=== PATIENT | female | born 1935 | race Caucasian/White ===

== ENCOUNTER 2018-11-18 18:52 | Inpatient (IN) | payer MEDICARE, OTHER ==
[~2018-11-18] VITALS: Ht 165.1 cm; Wt 55.1 kg
--- NOTE | 2018-11-18 19:47 | EKG ---
[address] [address] Test Date: 2018-11-18 Test Time: 19:45:01 Pat Name: JOSSY CONNELLY Department: Room: Gender: F Psychological Operations Officer: : 1935 Requested By: JOAN COSTELLO Order Number: [id number] Reading MD: Alvin Demarco Measurements Intervals [place] Rate: 82 P: 65 [place]: 162 QRS: 39 QRSD: 68 T: 66 QT: 346 QTc: 407 Interpretive Statements SINUS RHYTHM Electronically Signed On 11-26-2018 10:51:08 CLIENT SERVER DEVELOPER by Alvin Demarco
[2018-11-18 19:50] LABS: BASO % 0 % (0-3); EOS # 0.2 x10^3/uL (0.0-0.7); EOS % 3 % (0-3); HEMATOCRIT 40.1 % (36.0-47.0); HEMOGLOBIN 13.1 g/dL (12.0-15.5); LYMPH # 1.1 x10^3/uL (1.0-4.8); LYMPH % 16 % (24-48); MEAN CORPUSCULAR HEMOGLOBIN 28 pg (25-35); MEAN CORPUSCULAR HGB CONC 33 g/dL (31-37); MEAN CORPUSCULAR VOLUME 84 fL (79-100); MONO # 0.6 x10^3/uL (0.0-1.1); MONO % 9 % (0-9); NEUT % 73 % (31-73); PLATELET COUNT 178 x10^3/uL (140-400); RED BLOOD COUNT 4.78 x10^6/uL (3.50-5.40); RED CELL DISTRIBUTION WIDTH 15.8 % (11.5-14.5); WHITE BLOOD COUNT 6.9 x10^3/uL (4.0-11.0)
[2018-11-18 19:57] LABS: AMPHETAMINE/METHAMPHETAMINE NEG (NEG); BARBITURATES NEG (NEG); BENZODIAZEPINES NEG (NEG); CANNABINOIDS NEG (NEG); COCAINE NEG (NEG); METHADONE NEG (NEG); OPIATES NEG (NEG); PHENCYCLIDINE NEG (NEG)
[2018-11-18 20:02] LABS: BILIRUBIN,URINE NEG (NEG); CLARITY,URINE CLOUDY; COLOR,URINE YELLOW; GLUCOSE,URINE NEG (NEG); NITRITE,URINE NEG (NEG); UROBILINOGEN,URINE 2 mg/dL (0.2 mg/dL)
[2018-11-18 20:03] LABS: AMORPHOUS SEDIMENT,UR PRESENT /HPF; BACTERIA,URINE MANY /HPF (0-FEW); HYALINE CASTS, URINE OCC /HPF; SQUAMOUS EPITHELIAL CELL,UR OCC /LPF
[2018-11-18 20:04] LABS: ALBUMIN 2.7 g/dL (3.4-5.0); CALCIUM 9.1 mg/dL (8.5-10.1); CREATININE 0.9 mg/dL (0.6-1.0); DIRECT BILIRUBIN 0.2 mg/dL (0.0-0.2); GFR 59.8; POTASSIUM 3.1 mmol/L (3.5-5.1); TOTAL BILIRUBIN 0.5 mg/dL (0.2-1.0); TOTAL PROTEIN 6.7 g/dL (6.4-8.2)
[2018-11-18] MEDS ORDERED: POTASSIUM CHLORIDE 20 MEQ TABLET.ER. PO ONE (20:30)
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
[2018-11-18] MEDS ORDERED: POLY17PO5 PO ×2 (20:44)
[2018-11-18] MEDS ORDERED: POTA20TA82 PO (20:44)
[2018-11-18] MEDS ORDERED: SPIR25TA PO (20:44)
[2018-11-18] MEDS ORDERED: MEMA28CA PO (20:44)
[2018-11-18] MEDS ORDERED: HYDR-2145 PO (20:44)
[2018-11-18] MEDS ORDERED: FLUT16SP21 NS (20:44)
[2018-11-18] MEDS ORDERED: LOPE2TAB27 PO (20:44)
[2018-11-18] MEDS ORDERED: DOCU-109 PO (20:44)
[2018-11-18] MEDS ORDERED: OMEP20TA8 PO (20:44)
[2018-11-18] MEDS ORDERED: DIVA125C2 PO (20:44)
[2018-11-18] MEDS ORDERED: PANT40TA5 PO (20:44)
[2018-11-18] MEDS ORDERED: TAMS0.4C2 PO (20:44)
[2018-11-18] MEDS ORDERED: ONDA4TAB11 PO (20:44)
[2018-11-18] MEDS ORDERED: SERT25TA PO (20:44)
[2018-11-18] MEDS ORDERED: DONE10TA7 PO (20:44)
[2018-11-18] MEDS ORDERED: ATOR10TA60 PO (20:44)
[2018-11-18] MEDS ORDERED: VENL150C6 PO (20:44)
[2018-11-18] MEDS ORDERED: ACET325T21 PO (20:44)
[2018-11-18] MEDS ORDERED: LORA2VIA IM (20:44)
[2018-11-18 21:24] VITALS: BP 108/64
[2018-11-18] MEDS ORDERED: MAGNESIUM HYDROXIDE 2,400 MG/30 ML ORAL.SUSP. PO PRN (21:30)
[2018-11-18] MEDS ORDERED: MAG HYDROX/AL HYDROX/SIMETH 30 ML ORAL.SUSP PO PRN (21:30)
[2018-11-18] MEDS ORDERED: METHYL SALICYLATE/MENTHOL TOPICAL OINTMENT 29GM TUBE. TP PRN (21:30)
[2018-11-18] MEDS ORDERED: ACETAMINOPHEN 325 MG TABLET PO PRN (21:45)
[2018-11-18] MEDS: POTASSIUM CHLORIDE 20 MEQ TABLET.ER. PO SCH (22:02)
[2018-11-18] MEDS: TAMSULOSIN 0.4 MG CAP.ER.24H. PO SCH (22:06)
[2018-11-18] MEDS: PANTOPRAZOLE 40 MG TABLET. PO SCH (22:06)
[2018-11-18] MEDS: DIVALPROEX 125 MG CAP.SPRINK PO SCH (22:06)
[2018-11-18] MEDS ORDERED: ONDANSETRON ODT 4 MG TAB.RAPDIS PO PRN (22:15)
[2018-11-18] MEDS ORDERED: POLYETHYLENE GLYCOL 3350 17 GM PACKET. PO PRN (22:15)
[2018-11-18] MEDS ORDERED: LOPERAMIDE 2 MG CAPSULE PO PRN (22:15)
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
--- NOTE | 2018-11-18 22:16 | PDOC ---
Exam Note: Yandel Note: Please also refer to the separate dictated note~for this date of service dictated separately. Discussed the patient with Nursing staff reviewed the chart.~Reviewed interim history and current functioning. Reviewed vital signs,~ Labs/ Radiology~and current medications noted below. Continue current treatment with the changes noted in the dictated addendum note Assessment: Vital Signs: Vital Signs Date Time Temp Pulse Resp B/P (MAP) Pulse Ox O2 Delivery O2 Flow Rate FiO2 11/18/18 21:24 98.0 73 16 108/64 (79) 100 11/18/18 20:53 Room Air Labs: Laboratory Tests Test 11/18/18 19:35 White Blood Count 6.9 x10^3/uL (4.0-11.0) Red Blood Count 4.78 x10^6/uL (3.50-5.40) Hemoglobin 13.1 g/dL (12.0-15.5) Hematocrit 40.1 % (36.0-47.0) Mean Corpuscular Volume 84 fL (79-100) Mean Corpuscular Hemoglobin 28 pg (25-35) Mean Corpuscular Hemoglobin Concent 33 g/dL (31-37) Red Cell Distribution Width 15.8 % (11.5-14.5) H Platelet Count 178 x10^3/uL (140-400) Neutrophils (%) (Auto) 73 % (31-73) Lymphocytes (%) (Auto) 16 % (24-48) L Monocytes (%) (Auto) 9 % (0-9) Eosinophils (%) (Auto) 3 % (0-3) Basophils (%) (Auto) 0 % (0-3) Neutrophils # (Auto) 5.0 x10^3uL (1.8-7.7) Lymphocytes # (Auto) 1.1 x10^3/uL (1.0-4.8) Monocytes # (Auto) 0.6 x10^3/uL (0.0-1.1) Eosinophils # (Auto) 0.2 x10^3/uL (0.0-0.7) Basophils # (Auto) 0.0 x10^3/uL (0.0-0.2) Urine Collection Type Unknown Urine Color Yellow Urine Clarity Cloudy Urine pH 6.0 Urine Specific [place] 1.020 Urine Protein Neg (NEG-TRACE) Urine Glucose (UA) Neg mg/dL (NEG) Urine Ketones (Stick) 15 mg/dL (NEG) Urine Blood Mod (NEG) Urine Nitrite Neg (NEG) Urine Bilirubin Neg (NEG) Urine Urobilinogen Dipstick 2 mg/dL (0.2 mg/dL) Urine Leukocyte Esterase Trace (NEG) Urine RBC 3-5 /HPF (0-2) Urine WBC 5-10 /HPF (0-4) Urine Squamous Epithelial Cells Occ /LPF Urine Transitional Epithelial Cells Occ /LPF Urine Amorphous Sediment Present /HPF Urine Bacteria Many /HPF (0-FEW) Urine Hyaline Casts Occ /HPF Urine Mucus Slight /LPF Sodium Level 141 mmol/L (136-145) Potassium Level 3.1 mmol/L (3.5-5.1) L Chloride Level 103 mmol/L (98-107) Carbon Dioxide Level 32 mmol/L (21-32) Anion Gap 6 (6-14) Blood Urea Nitrogen 21 mg/dL (7-20) H Creatinine 0.9 mg/dL (0.6-1.0) Estimated GFR (Cockcroft-Gault) 59.8 Glucose Level 107 mg/dL (70-99) H Calcium Level 9.1 mg/dL (8.5-10.1) Total Bilirubin 0.5 mg/dL (0.2-1.0) Direct Bilirubin 0.2 mg/dL (0.0-0.2) Aspartate Amino Transferase (AST) 48 U/L (15-37) H Alanine Aminotransferase (ALT) 39 U/L (14-59) Alkaline Phosphatase 129 U/L (46-116) H Total Protein 6.7 g/dL (6.4-8.2) Albumin 2.7 g/dL (3.4-5.0) L Urine Opiates Screen Neg (NEG) Urine Methadone Screen Neg (NEG) Urine Barbiturates Neg (NEG) Urine Phencyclidine Screen Neg (NEG) Urine Amphetamine/Methamphetamine Neg (NEG) Urine Benzodiazepines Screen Neg (NEG) Urine Cocaine Screen Neg (NEG) Urine Cannabinoids Screen Neg (NEG) Ethyl Alcohol Level < 10 mg/dL (0-10) Urine Ethyl Alcohol Neg (NEG) Current Medications: Meds: Current Medications Potassium Chloride (Klor-Con) 40 meq 1X ONCE PO Last administered on at 21:41; Start 11/18/18 at 20:30; Stop 11/18/18 at 20:31; Status DC Multi-Ingredient Ointment (Analgesic [place]) 1 [place] PRN QID PRN TP MUSCLE PAIN; Start 11/18/18 at 21:30 Al Hydroxide/Mg Hydroxide (Mylanta Plus Xs) 15 ml PRN AFTMEALHC PRN PO DYSPEPSIA; Start 11/18/18 at 21:30 Magnesium Hydroxide (Milk Of Magnesia) 2,400 mg PRN QHS PRN PO CONSTIPATION; Start 11/18/18 at 21:30 Divalproex Sodium (Depakote Sprinkles) 250 mg BID PO Last administered on at 22:06; Start 11/18/18 at 22:15 Donepezil HCl (Aricept) 10 mg DAILY PO ; Start 11/19/18 at 09:00 Memantine (Namenda) 10 mg BID PO ; Start 11/19/18 at 09:00 Sertraline HCl (Zoloft) 25 mg DAILY PO ; Start 11/19/18 at 09:00 Venlafaxine HCl (Effexor) 50 mg TID PO ; Start 11/19/18 at 09:00 Acetaminophen (Tylenol) 650 mg PRN Q4HRS PRN PO PAIN / TEMP; Start 11/18/18 at 21:45 Hydrochlorothiazide (Hydrodiuril) 25 mg DAILY PO ; Start 11/19/18 at 09:00 Tamsulosin HCl (Flomax) 0.4 mg HS PO Last administered on 11/18/18at 22:06; Start 11/18/18 at 22:15 Atorvastatin Calcium (Lipitor) 10 mg DAILY PO ; Start 11/19/18 at 09:00 Docusate Sodium (Colace) 100 mg DAILY PO ; Start 11/19/18 at 09:00 Fluticasone Propionate (Flonase) 2 spray DAILY NS ; Start 11/19/18 at 09:00 Loperamide HCl (Imodium) 2 mg PRN Q6HRS PRN PO DIARRHEA; Start 11/18/18 at 22: 15 Non-Formulary Medication (Omeprazole ) 20 mg DAILY PO ; Start 11/19/18 at 09:00 ; Status UNV Ondansetron HCl (Zofran Odt) 4 mg PRN Q6HRS PRN PO NAUSEA/VOMITING; Start 11/18 at 22:15 Pantoprazole Sodium (Protonix) 40 mg BID PO Last administered on 11/18/18at 22: 06; Start 11/18/18 at 22:15 Polyethylene Glycol (miraLAX) 17 gm DAILY PO ; Start 11/19/18 at 09:00 Polyethylene Glycol (miraLAX) 17 gm PRN Q12HR PRN PO CONSTIPATION; Start at 22:15 Potassium Chloride (Klor-Con) 20 meq BID PO ; Start 11/18/18 at 22:15 Spironolactone (Aldactone) 25 mg DAILY PO ; Start 11/19/18 at 09:00 Active Scripts Active Reported Ondansetron Hcl 4 Mg Tablet 4 Mg PO PRN Q6HRS PRN Zoloft (Sertraline Hcl) 25 Mg Tablet 25 Mg PO DAILY Pantoprazole Sodium 40 Mg Tablet.dr 40 Mg PO BID Potassium Chloride 20 Meq Tablet.er 20 Meq PO BID Miralax (Polyethylene Glycol 3350) 17 Gm Powd.pack 17 Gm PO PRN Q12HR PRN Miralax (Polyethylene Glycol 3350) 17 Gm Powd.pack 17 Gm PO DAILY Omeprazole 20 Mg Tablet.dr 20 Mg PO DAILY Namenda Xr (Memantine Hcl) 28 Mg Cap.spr.24 28 Mg PO DAILY Loperamide (Loperamide Hcl) 2 Mg Tablet 2 Mg PO PRN Q6HRS PRN Hydrochlorothiazide Tablet (Hydrochlorothiazide) 25 Mg Tablet 25 Mg PO DAILY Fluticasone Propionate Nasal [place] (Fluticasone Propionate) 16 Gm [place].susp 2 [place] NS DAILY Tamsulosin Hcl 0.4 Mg Cap.er.24h 0.4 Mg PO HS Venlafaxine Hcl Er (Venlafaxine Hcl) 150 Mg Cap.er.24h 150 Mg PO DAILY Donepezil Hcl 10 Mg Tablet 10 Mg PO DAILY Depakote Sprinkle (Divalproex Sodium) 125 Mg Cap.sprink 250 Mg PO BID Colace (Docusate Sodium) 100 Mg Capsule 100 Mg PO DAILY Atorvastatin Calcium 10 Mg Tablet 10 Mg PO DAILY Lorazepam 2 Mg/1 Ml Vial 0.5 Ml IM PRN Q6HRS PRN Aldactone (Spironolactone) 25 Mg Tablet 25 Mg PO DAILY Acetaminophen 325 Mg Tablet 650 Mg PO PRN Q4HRS PRN I have reviewed the current psychotropics carefully including drug interactions. Risk benefit ratio favors no change other than as noted in my dictated progress note. Diagnosis: Problems: (1) Dementia with behavioral disturbance MORIS CHAVEZ MD Nov 18, 2018 22:16
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
[2018-11-19 05:38] VITALS: BP 109/65
[2018-11-19 08:23] LABS: ALBUMIN 2.5 g/dL (3.4-5.0); ALBUMIN/GLOBULIN RATIO 0.7 (1.0-1.7); CALCIUM 9.1 mg/dL (8.5-10.1); CREATININE 0.9 mg/dL (0.6-1.0); GFR 59.8; TOTAL BILIRUBIN 0.6 mg/dL (0.2-1.0); TOTAL PROTEIN 6.2 g/dL (6.4-8.2)
[2018-11-19] MEDS: DIVALPROEX 125 MG CAP.SPRINK PO SCH ×2 (08:34→21:11)
[2018-11-19] MEDS: PANTOPRAZOLE 40 MG TABLET. PO SCH ×2 (08:34→21:12)
[2018-11-19] MEDS: DOCUSATE SODIUM 100 MG CAPSULE PO SCH (08:34)
[2018-11-19] MEDS: POTASSIUM CHLORIDE 20 MEQ TABLET.ER. PO SCH ×2 (08:34→21:12)
[2018-11-19] MEDS: DONEPEZIL HCL 10 MG TABLET PO SCH (08:35)
[2018-11-19] MEDS: hydroCHLOROthiazide 25 MG TABLET PO SCH (08:35)
[2018-11-19] MEDS: FLUTICASONE 50MCG/NASAL SPRAY 16GM BOTTLE. NS SCH (08:35)
[2018-11-19] MEDS: ATORVASTATIN CALCIUM 10 MG TABLET. PO SCH (08:35)
[2018-11-19] MEDS: MEMANTINE 10 MG TABLET. PO SCH ×2 (08:35→21:12)
[2018-11-19] MEDS: SERTRALINE 25 MG TABLET. PO SCH (08:35)
[2018-11-19] MEDS: POLYETHYLENE GLYCOL 3350 17 GM PACKET. PO SCH (08:35)
[2018-11-19] MEDS: SPIRONOLACTONE 25 MG TABLET PO SCH (08:35)
[2018-11-19] MEDS: VENLAFAXINE 50 MG TABLET. PO SCH ×2 (08:35→15:24)
[2018-11-19 08:54] LABS: VAL ACID 27 mcg/mL (50-100)
[2018-11-19] MEDS ORDERED: NON FORMULARY ITEM (Omeprazole 20 MG) PO SCH (09:00)
--- NOTE | 2018-11-19 10:51 | NUR ---
Transition Record was faxed to follow-up provider with the following elements: Reason for admission, procedures, tests, principal diagnosis, pending studies, patient instructions, 16/04 contact information for unit, phone number to obtain pending test results, plan for follow-up care, physician follow-up, advanced directive information, and medication list with dose, duration and instructions. This information was included in the following documents: History and physical, lab results, study results, progress notes, social work planning form, DC instruction form, patient visit summary, and medication reconciliation form. Date & time record faxed: 11/19/18 @1002 Record faxed to: [facility] [place]Note 2], Dr. Edna Rodrigues Record discussed with/ report given to: FIDELIA Maciel @ [facility] Addendum: 11/19/18 at 1104 by DANIEL NELSON RN Wrong Patient. Patient not discharged 11/19/18 Documented discharge on wrong patient
[2018-11-19 13:46] LABS: THYROID STIM HORMONE (TSH) 1.916 uIU/mL (0.358-3.740)
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
[2018-11-19 16:22] VITALS: BP 104/70
--- NOTE | 2018-11-19 17:24 | NUR ---
Behavior Intervention Response and Plan: BIRP Note: Behavior: Assumed Care of patient, patient located in Day Room at shift change. Patient exhibited the following behavior Calm, Withdrawn, Non Compliant. Brief assessment on rounds of vital signs, medication needs, lab studies, and pain. Treatment plan problems . Intervention: Patient assessed and the following interventions initiated safety checks 15 Minute Checks Cognitive Assessment , Head to toe Assessment , Medications. Response: After interactions and interventions patient responded in the following manner, Calm , Cooperative ,Withdrawn. Continue to assess behaviors and condition will continue to monitor throughout the shift as needed. Patient educated on ADL's, and hand hygiene. 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 Continue to assess patient for changes in above assessment. Monitor for medication needs, pain, and safety concerns. Hourly rounding performed to ensure safe environment.
--- NOTE | 2018-11-19 19:46 | HP ---
ADMIT DATE: 11/19/2018 This note covers elements not covered in my initial note on 11/19/2018. I met with the patient in the evening of 11/19/2018, previously discussed with nursing staff several times including Ml Zhao, ultrasound coordinator. IDENTIFYING DATA: The patient is an 82-year-old female referred to us from [facility] by her primary care physician and psychiatrist on account of worsening confusion, agitation, marked mood lability. She has been yelling, screaming, kicking, threatening to kill others, extremely paranoid, pushing chairs, feelings she is being held captive, aggressive to staff. Behaviors have been unmanageable at the facility as resulting in this referral. CHIEF COMPLAINT: "Why do you ask me these questions? You know all the answers. You will be the same if you were here. I have been here 3 weeks." HISTORY OF PRESENT ILLNESS: The patient has a history of dementia, Alzheimer's vascular type. She has been residing at the above facility for some time, but recently getting more paranoid, agitated with marked sleep and appetite changes, aggression, disruptive behaviors. She has been unmanageable at the facility. No clear history of bipolar disorder. PAST PSYCHIATRIC HISTORY: As above. MEDICAL HISTORY: Positive for hypertension, benign intracranial hypertension, mixed hyperlipidemia, Alzheimer's disease, diverticulitis, both small and large intestine with perforation and abscess with bleeding, status post fall on 09/03/2018. ACCU-CHEKS: None. CODE STATUS: DNR. ALLERGIES: Negative. DIET: Regular. Takes medications whole. Ambulates independently. UA on 11/18/2018 was positive. Culture is pending. CURRENT PSYCHOTROPICS: Depakote 250 b.i.d., Aricept 10 mg daily, Effexor 50 mg daily, Namenda 10 mg daily, Zoloft 25 mg daily. FAMILY HISTORY: Noncontributory. SOCIAL HISTORY: No history of alcohol, drug abuse, physical, sexual or elder abuse history is noted. Not known to be a perpetrator. REACTION TO HOSPITALIZATION: The patient oblivious of this. ASSETS: Supportive living at the [facility] facility, supportive family. MENTAL STATUS EXAMINATION: The patient was seen individually in the evening of 11/19/2018. The patient is oriented to herself. She is extremely paranoid, suspicious, anxious, restless, initially refusing to answer questions and then monosyllabic responses, quite suspicious. Insight, judgment, recent and remote memory, attention, concentration, fund of knowledge poor, consistent with her diagnoses. IMPRESSION: Major neurocognitive disorder, Alzheimer, vascular with delusion, depression, behavioral disturbance; anxiety disorder, unspecified; impulse control disorder, unspecified; probable urinary tract infection. Rest as above. PLAN: Admit to Geropsychiatry Unit at [facility]. I will see the patient daily individually. From a psychiatric standpoint, medical followup with Dr. Allison. Continue the patient on her current psychotropics, Depakote 250 b.i.d., Aricept 10 mg a day, Effexor 50 mg daily, Namenda 10 mg daily, Zoloft 25 mg daily. We will stop the Effexor since she is on the Zoloft. We will check a valproic acid level, observe baseline then adjust as clinically indicated. MORIS CHAVEZ MD DR: KRISTOPHER/nts JOB#: [id number] / [id number]
[2018-11-19 21:07] LABS: THYROXINE 5.9 ug/dL (4.5-12.0)
[2018-11-19] MEDS: TAMSULOSIN 0.4 MG CAP.ER.24H. PO SCH (21:13)
--- NOTE | 2018-11-19 22:26 | PDOC ---
Exam Note: Yandel Note: Please also refer to the separate dictated note~for this date of service dictated separately.~Patient seen individually. Discussed the patient with Nursing staff reviewed the chart.~Reviewed interim history and current functioning. Reviewed vital signs,~Labs/ Radiology~and current medications noted below. Continue current treatment with the changes noted in the dictated addendum note Assessment: Vital Signs: Vital Signs Date Time Temp Pulse Resp B/P (MAP) Pulse Ox O2 Delivery O2 Flow Rate FiO2 11/19/18 16:22 98.7 99 18 104/70 (81) 99 11/19/18 05:38 Room Air I&O Intake and Output 11/19/18 06:59 Intake Total 120 ml Balance 120 ml Intake Oral 120 ml # Bowel Movements 1 Labs: Laboratory Tests Test 11/19/18 07:47 Sodium Level 138 mmol/L (136-145) Potassium Level 4.0 mmol/L (3.5-5.1) Chloride Level 105 mmol/L (98-107) Carbon Dioxide Level 34 mmol/L (21-32) H Anion Gap -1 (6-14) L Blood Urea Nitrogen 15 mg/dL (7-20) Creatinine 0.9 mg/dL (0.6-1.0) Estimated GFR (Cockcroft-Gault) 59.8 BUN/Creatinine Ratio 17 (6-20) Glucose Level 96 mg/dL (70-99) Calcium Level 9.1 mg/dL (8.5-10.1) Magnesium Level 2.0 mg/dL (1.8-2.4) Total Bilirubin 0.6 mg/dL (0.2-1.0) Aspartate Amino Transferase (AST) 42 U/L (15-37) H Alanine Aminotransferase (ALT) 41 U/L (14-59) Alkaline Phosphatase 111 U/L (46-116) Total Protein 6.2 g/dL (6.4-8.2) L Albumin 2.5 g/dL (3.4-5.0) L Albumin/Globulin Ratio 0.7 (1.0-1.7) L 25-Hydroxy Vitamin D Total 16.6 ng/mL (30-100) L Thyroxine (T4) 5.9 ug/dL (4.5-12.0) Total Triiodothyronine (TT3) 84 ng/dL (71-180) Valproic Acid Level 27 mcg/mL (50-100) L Valproic Acid Last Dose Date 11/18/2018 Valproic Acid Last Dose Time 0900 Treponema pallidum Antibody Nonreactive (Nonreactive) Current Medications: Meds: Current Medications Potassium Chloride (Klor-Con) 40 meq 1X ONCE PO Last administered on 21:41; Start 11/18/18 at 20:30; Stop 11/18/18 at 20:31; Status DC Multi-Ingredient Ointment (Analgesic Hale) 1 isrrael PRN QID PRN TP MUSCLE PAIN; Start 11/18/18 at 21:30 Al Hydroxide/Mg Hydroxide (Mylanta Plus Xs) 15 ml PRN AFTMEALHC PRN PO DYSPEPSIA; Start 11/18/18 at 21:30 Magnesium Hydroxide (Milk Of Magnesia) 2,400 mg PRN QHS PRN PO CONSTIPATION; Start 11/18/18 at 21:30 Divalproex Sodium (Depakote Sprinkles) 250 mg BID PO Last administered on at 21:11; Start 11/18/18 at 22:15 Donepezil HCl (Aricept) 10 mg DAILY PO Last administered on 11/19/18 08:35; Start 11/19/18 at 09:00 Memantine (Namenda) 10 mg BID PO Last administered on 11/19/18 21:12; Start at 09:00 Sertraline HCl (Zoloft) 25 mg DAILY PO Last administered on 11/19/18 08:35; Start 11/19/18 at 09:00 Venlafaxine HCl (Effexor) 50 mg TID PO Last administered on 11/19/18at 15:24; Start 11/19/18 at 09:00; Stop 11/19/18 at 19:17; Status DC Acetaminophen (Tylenol) 650 mg PRN Q4HRS PRN PO PAIN / TEMP; Start 11/18/18 at 21:45 Hydrochlorothiazide (Hydrodiuril) 25 mg DAILY PO Last administered on 08:35; Start 11/19/18 at 09:00 Tamsulosin HCl (Flomax) 0.4 mg HS PO Last administered on 11/19/18at 21:13; Start 11/18/18 at 22:15 Atorvastatin Calcium (Lipitor) 10 mg DAILY PO Last administered on 11/19/18 08 :35; Start 11/19/18 at 09:00 Docusate Sodium (Colace) 100 mg DAILY PO Last administered on 11/19/18at 08:34; Start 11/19/18 at 09:00 Fluticasone Propionate (Flonase) 2 spray DAILY NS ; Start 11/19/18 at 09:00 Loperamide HCl (Imodium) 2 mg PRN Q6HRS PRN PO DIARRHEA; Start 11/18/18 at 22: 15 Non-Formulary Medication (Omeprazole ) 20 mg DAILY PO ; Start 11/19/18 at 09:00 ; Status UNV Ondansetron HCl (Zofran Odt) 4 mg PRN Q6HRS PRN PO NAUSEA/VOMITING; Start 11/18 at 22:15 Pantoprazole Sodium (Protonix) 40 mg BID PO Last administered on 11/19/18at 21: 12; Start 11/18/18 at 22:15 Polyethylene Glycol (miraLAX) 17 gm DAILY PO Last administered on 11/19/18at 08: 35; Start 11/19/18 at 09:00 Polyethylene Glycol (miraLAX) 17 gm PRN Q12HR PRN PO CONSTIPATION; Start at 22:15 Potassium Chloride (Klor-Con) 20 meq BID PO Last administered on 11/19/18at 21: 12; Start 11/18/18 at 22:15 Spironolactone (Aldactone) 25 mg DAILY PO Last administered on 11/19/18at 08:35 ; Start 11/19/18 at 09:00 Active Scripts Active Reported Ondansetron Hcl 4 Mg Tablet 4 Mg PO PRN Q6HRS PRN Zoloft (Sertraline Hcl) 25 Mg Tablet 25 Mg PO DAILY Pantoprazole Sodium 40 Mg Tablet.dr 40 Mg PO BID Potassium Chloride 20 Meq Tablet.er 20 Meq PO BID Miralax (Polyethylene Glycol 3350) 17 Gm Powd.pack 17 Gm PO PRN Q12HR PRN Miralax (Polyethylene Glycol 3350) 17 Gm Powd.pack 17 Gm PO DAILY Omeprazole 20 Mg Tablet.dr 20 Mg PO DAILY Namenda Xr (Memantine Hcl) 28 Mg Cap.spr.24 28 Mg PO DAILY Loperamide (Loperamide Hcl) 2 Mg Tablet 2 Mg PO PRN Q6HRS PRN Hydrochlorothiazide Tablet (Hydrochlorothiazide) 25 Mg Tablet 25 Mg PO DAILY Fluticasone Propionate Nasal [place] (Fluticasone Propionate) 16 Gm [place].susp 2 [place] NS DAILY Tamsulosin Hcl 0.4 Mg Cap.er.24h 0.4 Mg PO HS Venlafaxine Hcl Er (Venlafaxine Hcl) 150 Mg Cap.er.24h 150 Mg PO DAILY Donepezil Hcl 10 Mg Tablet 10 Mg PO DAILY Depakote Sprinkle (Divalproex Sodium) 125 Mg Cap.sprink 250 Mg PO BID Colace (Docusate Sodium) 100 Mg Capsule 100 Mg PO DAILY Atorvastatin Calcium 10 Mg Tablet 10 Mg PO DAILY Lorazepam 2 Mg/1 Ml Vial 0.5 Ml IM PRN Q6HRS PRN Aldactone (Spironolactone) 25 Mg Tablet 25 Mg PO DAILY Acetaminophen 325 Mg Tablet 650 Mg PO PRN Q4HRS PRN I have reviewed the current psychotropics carefully including drug interactions. Risk benefit ratio favors no change other than as noted in my dictated progress note. Diagnosis: Problems: (1) Dementia with behavioral disturbance (2) Anxiety disorder (3) Dementia in Alzheimer's disease with delusions (4) Dementia in Alzheimer's disease with depression (5) Dementia, vascular, with delusions (6) Dementia, vascular, with depression (7) Impulse control disorder MORIS CHAVEZ MD Nov 19, 2018 22:26
--- NOTE | 2018-11-19 22:49 | CONS ---
DATE OF CONSULTATION: 11/19/2018 REASON FOR CONSULTATION: Medical management. HISTORY OF PRESENT ILLNESS: The patient is an 82-year-old female patient, a resident at [facility] who was admitted on account of yelling, screaming, kicking, threatening to kill others, pushing chairs, feel she is being held captive, aggressive to staff, all this in a background of Alzheimer disease. PAST MEDICAL HISTORY: Significant for benign intracranial hypertension, mixed hyperlipidemia, diverticulitis, both small and large intestine with perforation and abscess with bleeding, fall. PAST PSYCHIATRIC HISTORY: Significant for major depressive disorder and Alzheimer disease. PAST SURGICAL HISTORY: Unremarkable. ALLERGIES: She has no known drug allergies. MEDICATIONS: She is currently on following medications: Aricept 10 mg daily, tamsulosin 0.4 mg at bedtime, atorvastatin calcium 10 mg daily, spironolactone 25 mg daily, acetaminophen 650 mg every 4 hours, divalproex sodium for Depakote 250 mg p.o. b.i.d., sertraline 25 mg p.o. daily, venlafaxine 150 mg p.o. daily, lorazepam 0.5 mL intramuscular every 6 hours, Namenda XR 28 mg daily, potassium chloride 20 mEq twice a day, Dyazide diuretics for hydrochlorothiazide 25 mg daily, Flonase 2 sprays to each nostril once a day, loperamide 2 mg every 6 hours as needed, Colace 100 mg daily polyethylene glycol 17 grams every 12 hours as needed, ondansetron 4 mg every 6 hours, omeprazole 20 mg daily, Protonix 40 mg twice a day. REVIEW OF SYSTEMS: As per history of present illness. PHYSICAL EXAMINATION GENERAL: When I examined her, the patient was sitting comfortably in her chair, in no apparent distress. She was pale, somewhat cachectic, but no jaundice, cyanosis, or thyromegaly. No jugular venous distension. No lower limb edema. VITAL SIGNS: Her heart rate was 70, blood pressure was 109/65, temperature was 97.9, respiratory rate was 16, and oxygen saturation was 98%. HEAD, EYES, EARS, NOSE, AND THROAT: Showed normocephalic, atraumatic. NECK: Supple. HEART: Showed normal first and second heart sounds. No gallop, rub, or murmur. CHEST: Clear to auscultation. No crepitation or rhonchi. ABDOMEN: Distended, soft, nontender. NEUROLOGIC: She is demented, but without any obvious localizing sign. All the cranial nerves are intact. She moves extremities without difficulty. She ambulates without assistance or assistive devices. LABORATORY DATA: Her lab work showed a white cell count of 6900, hemoglobin 13, hematocrit 40, MCV 84 and platelet count of 178,000. Her chemistry showed a serum sodium 138, apotassium 4, chloride 105, bicarbonate 34, anion gap of 1. Her BUN is 15, creatinine 0.9, estimated GFR was 59 mL per minute. Her glucose was 96, calcium was 9.1, magnesium 2. Serum iron was 35, TIBC was 258 and iron saturation was 14. Her total bilirubin, AST, ALT, alkaline phosphatase were normal. Total protein was 6.2, albumin 2.6. Serum triglyceride was 66, total cholesterol 140, LDL was 60, VLDL was 13, and HDL was 67 and the ratio was 2. TSH was 1.916. Urinalysis was essentially unremarkable and toxic screen was negative. IMPRESSION: In summary, this is an 82-year-old female patient, a resident at [facility] who was admitted on account of yelling, screaming, kicking, threatening to kill others, pushing chairs, feel she is being held captive, aggressive to staff, all this in a background of dementia of Alzheimer disease. She is here for inpatient psychiatric stabilization. She has multiple medical problems including benign intracranial hypertension, hyperlipidemia. She has history of diverticulitis. She did have ____ probably due to hydrochlorothiazide, although I am not really sure why she is on hydrochlorothiazide. She seemed to be generally stable. Her vital signs are within acceptable range. Her lab work showed that she has anemia of chronic disease and she has severe protein-calorie malnutrition with serum albumin is only 2.5 mg/dL. She did have hypokalemia that was corrected and now it is 4 mEq per liter. The patient seems to be medically stable. Thank you, Dr. Merino, for allowing me to participate in the care. KAY JOSE MD DR: MARLA/samantha JOB#: [id number] / [id number]
--- NOTE | 2018-11-19 23:00 | NUR ---
Behavior Intervention Response and Plan: BIRP Note: Behavior: Assumed Care of patient, patient located in Patient Room at shift change. Patient exhibited the following behavior Calm, Disorganized, Compliant. Brief assessment on rounds of vital signs, medication needs, lab studies, and pain. Treatment plan problems . Intervention: Patient assessed and the following interventions initiated safety checks 15 Minute Checks Head to toe Assessment , Cognitive Assessment , Medications. Response: After interactions and interventions patient responded in the following manner, Withdrawn , Able to Focus on Task ,Appropriate. Continue to assess behaviors and condition will continue to monitor throughout the shift as needed. Patient educated on ADL's, and hand hygiene. Plan: Continue to monitor Master Treatment Plan for patient's progress toward short term goals of Improved Mood, Decreased Agitation, bed bug exterminator goals to return to previous living setting vs placement. Continue to assess patient for changes in above assessment. Monitor for medication needs, pain, and safety concerns. Hourly rounding performed to ensure safe environment.
[2018-11-20 00:20] LABS: HEMOGLOBIN A1C 5.7 % (4.8-5.6)
[2018-11-20 06:04] VITALS: BP 88/48
[2018-11-20] MEDS: MEMANTINE 10 MG TABLET. PO SCH ×3 (10:05→21:00)
[2018-11-20] MEDS: POLYETHYLENE GLYCOL 3350 17 GM PACKET. PO SCH (10:05)
[2018-11-20] MEDS: POTASSIUM CHLORIDE 20 MEQ TABLET.ER. PO SCH ×3 (10:05→21:00)
[2018-11-20] MEDS: ATORVASTATIN CALCIUM 10 MG TABLET. PO SCH (10:05)
[2018-11-20] MEDS: DIVALPROEX 125 MG CAP.SPRINK PO SCH ×3 (10:05→21:00)
[2018-11-20] MEDS: hydroCHLOROthiazide 25 MG TABLET PO SCH (10:05)
[2018-11-20] MEDS: SERTRALINE 25 MG TABLET. PO SCH (10:05)
[2018-11-20] MEDS: DONEPEZIL HCL 10 MG TABLET PO SCH (10:05)
[2018-11-20] MEDS: PANTOPRAZOLE 40 MG TABLET. PO SCH ×3 (10:06→21:00)
[2018-11-20] MEDS: SPIRONOLACTONE 25 MG TABLET PO SCH (10:06)
[2018-11-20] MEDS: FLUTICASONE 50MCG/NASAL SPRAY 16GM BOTTLE. NS SCH (10:08)
[2018-11-20] MEDS: DOCUSATE SODIUM 100 MG CAPSULE PO SCH (10:08)
--- NOTE | 2018-11-20 10:32 | NUR ---
patient refused to take medications. She stated "if they are so good, take them yourself". Will hide medications in her lunch at meal time. She was sitting in the day room watching tv when approached by this nurse.
--- NOTE | 2018-11-20 15:00 | NUR ---
[id number] Morning Activity Therapy group charted on paper forms and filed in Pt. chart.
--- NOTE | 2018-11-20 15:30 | NUR ---
Activity Therapy Assessment Completed based on observation, interview, and [facility] notes. Pt. was in the day room when therapist approached and was agreeable to meet in her room. Therapist asked if Pt. remembered her from the morning activity therapy group to which Pt. replied 'I am not sure dear. My memory hasn't been great as of late.' Pt. stated she lives on her own in [place] and enjoys it. However, according to Pt. notes, she lives at [facility] in [place]. Pt. has one son, Juan Pablo, and she spoke at length about how 'handsome' he is and how 'proud' she is of him. Pt. stated she also has two grand sons that she wishes she could see more often. Pt. stated she enjoys walking and 'other things but my brain can't find the words'. Pt. also stated she prefers to keep to herself rather than be around a large group of people. 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 When asked how she handles stress, Pt. stated she 'talks herself through it'. Pt. asked about where she was and therapist explained that they were on a psychiatric unit at [facility]. Pt. seemed concerned that she was expected live here and therapist assured that she would only be here a few days. Pt. stated she 'won't take any medicine. I don't believe in it' and thanked therapist for visiting with her. Pt. ambulates independently and seems fairly healthy. According to notes, she enjoys painting, reading, and dancing and has a history of alcoholism. Pt. comes to group at times and needs processing time to answer questions or act on directions. pt. is very resistive to medications and cares from staff. Initial goal set to increase leisure knowledge and engagement: Pt. will participate in three Activity Therapy groups or 1:1 sessions per week.
[2018-11-20 15:54] VITALS: BP 114/76
--- NOTE | 2018-11-20 17:48 | NUR ---
Patient has been in day room most of the day. No delusions noted at this time. Patient was resistive with medications and they had to be given hidden in pudding. Even then it looked as if she was "trying to eat around them". She ambulates up ad thong with a walker.
[2018-11-20] MEDS: TAMSULOSIN 0.4 MG CAP.ER.24H. PO SCH ×2 (20:06→21:00)
--- NOTE | 2018-11-20 22:31 | PDOC ---
Exam Note: Yandel Note: Please also refer to the separate dictated note~for this date of service dictated separately.~Patient seen individually. Discussed the patient with Nursing staff reviewed the chart.~Reviewed interim history and current functioning. Reviewed vital signs,~Labs/ Radiology~and current medications noted below. Continue current treatment with the changes noted in the dictated addendum note Assessment: Vital Signs: Vital Signs Date Time Temp Pulse Resp B/P (MAP) Pulse Ox O2 Delivery O2 Flow Rate FiO2 11/20/18 15:54 97.6 66 16 114/76 (89) 97 11/19/18 05:38 Room Air I&O Intake and Output 11/20/18 06:59 Intake Total 820 ml Balance 820 ml Intake Oral 820 ml Current Medications: Meds: Current Medications Potassium Chloride (Klor-Con) 40 meq 1X ONCE PO Last administered on at 21:41; Start 11/18/18 at 20:30; Stop 11/18/18 at 20:31; Status DC Multi-Ingredient Ointment (Analgesic Lyndon) 1 isrrael PRN QID PRN TP MUSCLE PAIN; Start 11/18/18 at 21:30 Al Hydroxide/Mg Hydroxide (Mylanta Plus Xs) 15 ml PRN AFTMEALHC PRN PO DYSPEPSIA; Start 11/18/18 at 21:30 Magnesium Hydroxide (Milk Of Magnesia) 2,400 mg PRN QHS PRN PO CONSTIPATION; Start 11/18/18 at 21:30 Divalproex Sodium (Depakote Sprinkles) 250 mg BID PO Last administered on at 20:06; Start 11/18/18 at 22:15 Donepezil HCl (Aricept) 10 mg DAILY PO Last administered on 11/20/18at 10:05; Start 11/19/18 at 09:00 Memantine (Namenda) 10 mg BID PO Last administered on 11/20/18at 20:06; Start at 09:00 Sertraline HCl (Zoloft) 25 mg DAILY PO Last administered on 11/20/18at 10:05; Start 11/19/18 at 09:00 Venlafaxine HCl (Effexor) 50 mg TID PO Last administered on 11/19/18at 15:24; Start 11/19/18 at 09:00; Stop 11/19/18 at 19:17; Status DC Acetaminophen (Tylenol) 650 mg PRN Q4HRS PRN PO PAIN / TEMP; Start 11/18/18 at 21:45 Hydrochlorothiazide (Hydrodiuril) 25 mg DAILY PO Last administered on 10:05; Start 11/19/18 at 09:00 Tamsulosin HCl (Flomax) 0.4 mg HS PO Last administered on 11/20/18 20:06; Start 11/18/18 at 22:15 Atorvastatin Calcium (Lipitor) 10 mg DAILY PO Last administered on 11/20/18 10 :05; Start 11/19/18 at 09:00 Docusate Sodium (Colace) 100 mg DAILY PO Last administered on 11/20/18 10:08; Start 11/19/18 at 09:00 Fluticasone Propionate (Flonase) 2 spray DAILY NS Last administered on 10:08; Start 11/19/18 at 09:00 Loperamide HCl (Imodium) 2 mg PRN Q6HRS PRN PO DIARRHEA; Start 11/18/18 at 22: 15 Non-Formulary Medication (Omeprazole ) 20 mg DAILY PO ; Start 11/19/18 at 09:00 ; Status UNV Ondansetron HCl (Zofran Odt) 4 mg PRN Q6HRS PRN PO NAUSEA/VOMITING; Start 11/18 at 22:15 Pantoprazole Sodium (Protonix) 40 mg BID PO Last administered on 11/20/18 20: 06; Start 11/18/18 at 22:15 Polyethylene Glycol (miraLAX) 17 gm DAILY PO Last administered on 11/20/18 10: 05; Start 11/19/18 at 09:00 Polyethylene Glycol (miraLAX) 17 gm PRN Q12HR PRN PO CONSTIPATION; Start at 22:15 Potassium Chloride (Klor-Con) 20 meq BID PO Last administered on 11/20/18 20: 06; Start 11/18/18 at 22:15 Spironolactone (Aldactone) 25 mg DAILY PO Last administered on 11/20/18 10:06 ; Start 11/19/18 at 09:00 Active Scripts Active Reported Ondansetron Hcl 4 Mg Tablet 4 Mg PO PRN Q6HRS PRN Zoloft (Sertraline Hcl) 25 Mg Tablet 25 Mg PO DAILY Pantoprazole Sodium 40 Mg Tablet.dr 40 Mg PO BID Potassium Chloride 20 Meq Tablet.er 20 Meq PO BID Miralax (Polyethylene Glycol 3350) 17 Gm Powd.pack 17 Gm PO PRN Q12HR PRN Miralax (Polyethylene Glycol 3350) 17 Gm Powd.pack 17 Gm PO DAILY Omeprazole 20 Mg Tablet.dr 20 Mg PO DAILY Namenda Xr (Memantine Hcl) 28 Mg Cap.spr.24 28 Mg PO DAILY Loperamide (Loperamide Hcl) 2 Mg Tablet 2 Mg PO PRN Q6HRS PRN Hydrochlorothiazide Tablet (Hydrochlorothiazide) 25 Mg Tablet 25 Mg PO DAILY Fluticasone Propionate Nasal [place] (Fluticasone Propionate) 16 Gm [place].susp 2 [place] NS DAILY Tamsulosin Hcl 0.4 Mg Cap.er.24h 0.4 Mg PO HS Venlafaxine Hcl Er (Venlafaxine Hcl) 150 Mg Cap.er.24h 150 Mg PO DAILY Donepezil Hcl 10 Mg Tablet 10 Mg PO DAILY Depakote Sprinkle (Divalproex Sodium) 125 Mg Cap.sprink 250 Mg PO BID Colace (Docusate Sodium) 100 Mg Capsule 100 Mg PO DAILY Atorvastatin Calcium 10 Mg Tablet 10 Mg PO DAILY Lorazepam 2 Mg/1 Ml Vial 0.5 Ml IM PRN Q6HRS PRN Aldactone (Spironolactone) 25 Mg Tablet 25 Mg PO DAILY Acetaminophen 325 Mg Tablet 650 Mg PO PRN Q4HRS PRN I have reviewed the current psychotropics carefully including drug interactions. Risk benefit ratio favors no change other than as noted in my dictated progress note. Diagnosis: Problems: (1) Dementia with behavioral disturbance (2) Anxiety disorder (3) Dementia in Alzheimer's disease with delusions (4) Dementia in Alzheimer's disease with depression (5) Dementia, vascular, with delusions (6) Dementia, vascular, with depression (7) Impulse control disorder MORIS CHAVEZ MD Nov 20, 2018 22:31
--- NOTE | 2018-11-20 23:51 | NUR ---
Pt sitting calmly, dozing on and off in the dayroom all evening. Pt refused to acknowledge nurse when approached, refusing to open her eyes or answer any assessment questions. Pt sarcastic, very irritable. Pt refusing whole medications. Medications crushed and hidden in vanilla pudding and were refused. Pt refused to ambulate to her room for bedtime. Staff x3 assisted pt to bed. Pt continued to be irritable and non compliant, becoming " weight" and not assisting staff with dressing change.
[2018-11-21 05:47] VITALS: BP 104/57
[2018-11-21] MEDS: POLYETHYLENE GLYCOL 3350 17 GM PACKET. PO SCH ×2 (07:59→08:58)
[2018-11-21] MEDS: SPIRONOLACTONE 25 MG TABLET PO SCH (07:59)
[2018-11-21] MEDS: POTASSIUM CHLORIDE 20 MEQ TABLET.ER. PO SCH ×2 (07:59→19:17)
[2018-11-21] MEDS: SERTRALINE 25 MG TABLET. PO SCH (07:59)
[2018-11-21] MEDS: DOCUSATE SODIUM 100 MG CAPSULE PO SCH ×2 (07:59→08:58)
[2018-11-21] MEDS: MEMANTINE 10 MG TABLET. PO SCH ×2 (08:00→19:17)
[2018-11-21] MEDS: DONEPEZIL HCL 10 MG TABLET PO SCH (08:00)
[2018-11-21] MEDS: hydroCHLOROthiazide 25 MG TABLET PO SCH (08:00)
[2018-11-21] MEDS: ATORVASTATIN CALCIUM 10 MG TABLET. PO SCH (08:00)
[2018-11-21] MEDS: DIVALPROEX 125 MG CAP.SPRINK PO SCH ×2 (08:00→19:16)
[2018-11-21] MEDS: PANTOPRAZOLE 40 MG TABLET. PO SCH ×3 (08:00→19:17)
[2018-11-21] MEDS: FLUTICASONE 50MCG/NASAL SPRAY 16GM BOTTLE. NS SCH ×2 (08:01→09:00)
--- NOTE | 2018-11-21 09:21 | NUR ---
WEEKLY ACTIVITY THERAPY NOTE Date of Admission: 11/18/2018 Date of AT Assessment: TBD Goal aimed: TBD Initial goal: TBD Weekly progress towards goal: NA Group participation level: moderate Behaviors observed: keeps to self most of the time, enjoyed dancing activity on Sunday Plan: meet/assess Pt
--- NOTE | 2018-11-21 10:45 | NUR ---
Pt in dining room at time of assessment. Pt has been very non-compliant and suspicious with medications. Medications crushed and hidden in a boost on pt's breakfast tray. Pt cooperative with cares this morning. Continue to monitor.
--- NOTE | 2018-11-21 11:51 | NUR ---
WEEKLY NOTE: Pt is sleeping 6.25 hours and eating 75%. Pt is refusing medications and is highly irritable. Pt likes Boost, in which her medications have been crushed. Pt has just started to attend groups and appears to be somewhat together. Pt reports liking to dance; but reported that she at times does play opossum. Pt Zoloft will be increased to 50mg q AM after 3 days. Pt will return to [facility] by the end of next week if not the week after.
--- NOTE | 2018-11-21 13:48 | NUR ---
TRESA spoke to Juan Pablo, pt. son, to update him on pt. progress. TRESA shared pt. has been agitated at times, refuses medications so they are hidden in Boost, and pt. has started attending some groups. A tentative discharge is scheduled for the end of next week or the beginning of the week after. TRESA contacted Davina, social insurance analyst at [facility], to update her on pt. progress and to discuss pt. discharge. TRESA will touch base with Davina next , after treatment team, to solidify discharge plans.
[2018-11-21 16:19] VITALS: BP 118/74
[2018-11-21] MEDS: TAMSULOSIN 0.4 MG CAP.ER.24H. PO SCH (19:16)
--- NOTE | 2018-11-21 22:01 | NUR ---
Pt withdrawn to room at shift change. Pt irritable, suspicious, and resistive. Pt was escorted to day room by staff members. Pt was non-compliant with HS medications. Meds were crushed and hidden in a chocolate shake, which pt consumed approximately half before refusing to drink any more.
--- NOTE | 2018-11-21 22:26 | PDOC ---
Exam Note: Yandel Note: Please also refer to the separate dictated note~for this date of service dictated separately.~Patient seen individually. Discussed the patient with Nursing staff reviewed the chart.~Reviewed interim history and current functioning. Reviewed vital signs,~Labs/ Radiology~and current medications noted below. Continue current treatment with the changes noted in the dictated addendum note Assessment: Vital Signs: Vital Signs Date Time Temp Pulse Resp B/P (MAP) Pulse Ox O2 Delivery O2 Flow Rate FiO2 11/21/18 16:19 98.4 74 18 118/74 (89) 98 Room Air I&O Intake and Output 11/21/18 07:00 Intake Total 1080 ml Balance 1080 ml Intake Oral 1080 ml # Voids 1 Current Medications: Meds: Current Medications Potassium Chloride (Klor-Con) 40 meq 1X ONCE PO Last administered on at 21:41; Start 11/18/18 at 20:30; Stop 11/18/18 at 20:31; Status DC Multi-Ingredient Ointment (Analgesic [place]) 1 isrrael PRN QID PRN TP MUSCLE PAIN; Start 11/18/18 at 21:30 Al Hydroxide/Mg Hydroxide (Mylanta Plus Xs) 15 ml PRN AFTMEALHC PRN PO DYSPEPSIA; Start 11/18/18 at 21:30 Magnesium Hydroxide (Milk Of Magnesia) 2,400 mg PRN QHS PRN PO CONSTIPATION; Start 11/18/18 at 21:30 Divalproex Sodium (Depakote Sprinkles) 250 mg BID PO Last administered on at 19:16; Start 11/18/18 at 22:15 Donepezil HCl (Aricept) 10 mg DAILY PO Last administered on 11/21/18at 08:00; Start 11/19/18 at 09:00 Memantine (Namenda) 10 mg BID PO Last administered on 11/21/18at 19:17; Start at 09:00 Sertraline HCl (Zoloft) 25 mg DAILY PO Last administered on 11/21/18at 07:59; Start 11/19/18 at 09:00; Stop 11/21/18 at 13:14; Status DC Venlafaxine HCl (Effexor) 50 mg TID PO Last administered on 11/19/18at 15:24; Start 11/19/18 at 09:00; Stop 11/19/18 at 19:17; Status DC Acetaminophen (Tylenol) 650 mg PRN Q4HRS PRN PO PAIN / TEMP; Start 11/18/18 at 21:45 Hydrochlorothiazide (Hydrodiuril) 25 mg DAILY PO Last administered on 08:00; Start 11/19/18 at 09:00 Tamsulosin HCl (Flomax) 0.4 mg HS PO Last administered on 11/21/18 19:16; Start 11/18/18 at 22:15 Atorvastatin Calcium (Lipitor) 10 mg DAILY PO Last administered on 11/21/18 08 :00; Start 11/19/18 at 09:00 Docusate Sodium (Colace) 100 mg DAILY PO Last administered on 11/20/18 10:08; Start 11/19/18 at 09:00 Fluticasone Propionate (Flonase) 2 spray DAILY NS Last administered on 10:08; Start 11/19/18 at 09:00 Loperamide HCl (Imodium) 2 mg PRN Q6HRS PRN PO DIARRHEA; Start 11/18/18 at 22: 15 Non-Formulary Medication (Omeprazole ) 20 mg DAILY PO ; Start 11/19/18 at 09:00 ; Status UNV Ondansetron HCl (Zofran Odt) 4 mg PRN Q6HRS PRN PO NAUSEA/VOMITING; Start 11/18 at 22:15 Pantoprazole Sodium (Protonix) 40 mg BID PO Last administered on 11/21/18 19: 17; Start 11/18/18 at 22:15 Polyethylene Glycol (miraLAX) 17 gm DAILY PO Last administered on 11/20/18 10: 05; Start 11/19/18 at 09:00 Polyethylene Glycol (miraLAX) 17 gm PRN Q12HR PRN PO CONSTIPATION; Start at 22:15 Potassium Chloride (Klor-Con) 20 meq BID PO Last administered on 11/21/18 19: 17; Start 11/18/18 at 22:15 Spironolactone (Aldactone) 25 mg DAILY PO Last administered on 11/21/18 07:59 ; Start 11/19/18 at 09:00 Sertraline HCl (Zoloft) 50 mg DAILY PO ; Start 11/22/18 at 09:00 Active Scripts Active Reported Ondansetron Hcl 4 Mg Tablet 4 Mg PO PRN Q6HRS PRN Zoloft (Sertraline Hcl) 25 Mg Tablet 25 Mg PO DAILY Pantoprazole Sodium 40 Mg Tablet.dr 40 Mg PO BID Potassium Chloride 20 Meq Tablet.er 20 Meq PO BID Miralax (Polyethylene Glycol 3350) 17 Gm Powd.pack 17 Gm PO PRN Q12HR PRN Miralax (Polyethylene Glycol 3350) 17 Gm Powd.pack 17 Gm PO DAILY Omeprazole 20 Mg Tablet.dr 20 Mg PO DAILY Namenda Xr (Memantine Hcl) 28 Mg Cap.spr.24 28 Mg PO DAILY Loperamide (Loperamide Hcl) 2 Mg Tablet 2 Mg PO PRN Q6HRS PRN Hydrochlorothiazide Tablet (Hydrochlorothiazide) 25 Mg Tablet 25 Mg PO DAILY Fluticasone Propionate Nasal [place] (Fluticasone Propionate) 16 Gm [place].susp 2 [place] NS DAILY Tamsulosin Hcl 0.4 Mg Cap.er.24h 0.4 Mg PO HS Venlafaxine Hcl Er (Venlafaxine Hcl) 150 Mg Cap.er.24h 150 Mg PO DAILY Donepezil Hcl 10 Mg Tablet 10 Mg PO DAILY Depakote Sprinkle (Divalproex Sodium) 125 Mg Cap.sprink 250 Mg PO BID Colace (Docusate Sodium) 100 Mg Capsule 100 Mg PO DAILY Atorvastatin Calcium 10 Mg Tablet 10 Mg PO DAILY Lorazepam 2 Mg/1 Ml Vial 0.5 Ml IM PRN Q6HRS PRN Aldactone (Spironolactone) 25 Mg Tablet 25 Mg PO DAILY Acetaminophen 325 Mg Tablet 650 Mg PO PRN Q4HRS PRN I have reviewed the current psychotropics carefully including drug interactions. Risk benefit ratio favors no change other than as noted in my dictated progress note. 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
[2018-11-22 05:49] VITALS: BP 92/53
[2018-11-22] MEDS: hydroCHLOROthiazide 25 MG TABLET PO SCH ×2 (07:44→07:46)
[2018-11-22] MEDS: MEMANTINE 10 MG TABLET. PO SCH ×2 (07:44→19:14)
[2018-11-22] MEDS: DONEPEZIL HCL 10 MG TABLET PO SCH (07:44)
[2018-11-22] MEDS: PANTOPRAZOLE 40 MG TABLET. PO SCH ×2 (07:44→19:14)
[2018-11-22] MEDS: DOCUSATE SODIUM 100 MG CAPSULE PO SCH (07:44)
[2018-11-22] MEDS: POLYETHYLENE GLYCOL 3350 17 GM PACKET. PO SCH (07:45)
[2018-11-22] MEDS: FLUTICASONE 50MCG/NASAL SPRAY 16GM BOTTLE. NS SCH (07:45)
[2018-11-22] MEDS: SPIRONOLACTONE 25 MG TABLET PO SCH (07:45)
[2018-11-22] MEDS: POTASSIUM CHLORIDE 20 MEQ TABLET.ER. PO SCH ×2 (07:45→19:14)
[2018-11-22] MEDS: DIVALPROEX 125 MG CAP.SPRINK PO SCH ×2 (07:45→19:14)
[2018-11-22] MEDS: ATORVASTATIN CALCIUM 10 MG TABLET. PO SCH (07:45)
[2018-11-22] MEDS: SERTRALINE 50 MG TABLET. PO SCH (07:47)
--- NOTE | 2018-11-22 09:29 | NUR ---
Pt continues to be very suspicious and non compliant with medications. AM medications crushed and hidden in chocolate Boost, and were consumed at breakfast. Pt irritable and withdrawn, refusing to interact with staff.
[2018-11-22 15:49] VITALS: BP 96/65
[2018-11-22] MEDS: TAMSULOSIN 0.4 MG CAP.ER.24H. PO SCH (19:14)
[2018-11-22] MEDS: LACTOBACILLUS RHAMNOSUS GG 1 CAPSULE. PO SCH (19:48)
[2018-11-22] MEDS: CIPROFLOXACIN HCL 250 MG TABLET PO SCH (19:48)
--- NOTE | 2018-11-22 21:24 | NUR ---
Pt withdrawn to room, laying in bed at shift change. Pt confused, disorganized, and resistive. Pt was brought into the day room for snacks. Pt was cooperative with assessment and compliant with medications crushed in Boost.
--- NOTE | 2018-11-22 21:50 | PDOC ---
Exam Note: Yandel Note: Please also refer to the separate dictated note~for this date of service dictated separately.~Patient seen individually. Discussed the patient with Nursing staff reviewed the chart.~Reviewed interim history and current functioning. Reviewed vital signs,~Labs/ Radiology~and current medications noted below. Continue current treatment with the changes noted in the dictated addendum note Assessment: Vital Signs: Vital Signs Date Time Temp Pulse Resp B/P (MAP) Pulse Ox O2 Delivery O2 Flow Rate FiO2 11/22/18 15:49 98.4 73 17 96/65 (75) 98 Room Air I&O Intake and Output 11/22/18 06:59 Intake Total 1260 ml Balance 1260 ml Intake Oral 1260 ml # Voids 1 Current Medications: Meds: Current Medications Potassium Chloride (Klor-Con) 40 meq 1X ONCE PO Last administered on at 21:41; Start 11/18/18 at 20:30; Stop 11/18/18 at 20:31; Status DC Multi-Ingredient Ointment (Analgesic [place]) 1 isrrael PRN QID PRN TP MUSCLE PAIN; Start 11/18/18 at 21:30 Al Hydroxide/Mg Hydroxide (Mylanta Plus Xs) 15 ml PRN AFTMEALHC PRN PO DYSPEPSIA; Start 11/18/18 at 21:30 Magnesium Hydroxide (Milk Of Magnesia) 2,400 mg PRN QHS PRN PO CONSTIPATION; Start 11/18/18 at 21:30 Divalproex Sodium (Depakote Sprinkles) 250 mg BID PO Last administered on at 19:14; Start 11/18/18 at 22:15 Donepezil HCl (Aricept) 10 mg DAILY PO Last administered on 11/22/18at 07:44; Start 11/19/18 at 09:00 Memantine (Namenda) 10 mg BID PO Last administered on 11/22/18 19:14; Start at 09:00 Sertraline HCl (Zoloft) 25 mg DAILY PO Last administered on 11/21/18at 07:59; Start 11/19/18 at 09:00; Stop 11/21/18 at 13:14; Status DC Venlafaxine HCl (Effexor) 50 mg TID PO Last administered on 11/19/18at 15:24; Start 11/19/18 at 09:00; Stop 11/19/18 at 19:17; Status DC Acetaminophen (Tylenol) 650 mg PRN Q4HRS PRN PO PAIN / TEMP; Start 11/18/18 at 21:45 Hydrochlorothiazide (Hydrodiuril) 25 mg DAILY PO Last administered on 08:00; Start 11/19/18 at 09:00 Tamsulosin HCl (Flomax) 0.4 mg HS PO Last administered on 11/22/18 19:14; Start 11/18/18 at 22:15 Atorvastatin Calcium (Lipitor) 10 mg DAILY PO Last administered on 11/22/18 07: 45; Start 11/19/18 at 09:00 Docusate Sodium (Colace) 100 mg DAILY PO Last administered on 11/22/18 07:44; Start 11/19/18 at 09:00 Fluticasone Propionate (Flonase) 2 spray DAILY NS Last administered on 10:08; Start 11/19/18 at 09:00 Loperamide HCl (Imodium) 2 mg PRN Q6HRS PRN PO DIARRHEA; Start 11/18/18 at 22: 15 Non-Formulary Medication (Omeprazole ) 20 mg DAILY PO ; Start 11/19/18 at 09:00 ; Status UNV Ondansetron HCl (Zofran Odt) 4 mg PRN Q6HRS PRN PO NAUSEA/VOMITING; Start 11/18 at 22:15 Pantoprazole Sodium (Protonix) 40 mg BID PO Last administered on 11/22/18 19:14 ; Start 11/18/18 at 22:15 Polyethylene Glycol (miraLAX) 17 gm DAILY PO Last administered on 11/22/18 07: 45; Start 11/19/18 at 09:00 Polyethylene Glycol (miraLAX) 17 gm PRN Q12HR PRN PO CONSTIPATION; Start at 22:15 Potassium Chloride (Klor-Con) 20 meq BID PO Last administered on 11/22/18 19:14 ; Start 11/18/18 at 22:15 Spironolactone (Aldactone) 25 mg DAILY PO Last administered on 11/22/18 07:45; Start 11/19/18 at 09:00 Sertraline HCl (Zoloft) 50 mg DAILY PO Last administered on 11/22/18at 07:47; Start 11/22/18 at 09:00 Ciprofloxacin (Cipro) 250 mg BID PO Last administered on 11/22/18at 19:48; Start 11/22/18 at 21:00 Lactobacillus Rhamnosus (Culturelle) 1 cap BID PO Last administered on at 19:48; Start 11/22/18 at 21:00 Active Scripts Active Reported Ondansetron Hcl 4 Mg Tablet 4 Mg PO PRN Q6HRS PRN Zoloft (Sertraline Hcl) 25 Mg Tablet 25 Mg PO DAILY Pantoprazole Sodium 40 Mg Tablet.dr 40 Mg PO BID Potassium Chloride 20 Meq Tablet.er 20 Meq PO BID Miralax (Polyethylene Glycol 3350) 17 Gm Powd.pack 17 Gm PO PRN Q12HR PRN Miralax (Polyethylene Glycol 3350) 17 Gm Powd.pack 17 Gm PO DAILY Omeprazole 20 Mg Tablet.dr 20 Mg PO DAILY Namenda Xr (Memantine Hcl) 28 Mg Cap.spr.24 28 Mg PO DAILY Loperamide (Loperamide Hcl) 2 Mg Tablet 2 Mg PO PRN Q6HRS PRN Hydrochlorothiazide Tablet (Hydrochlorothiazide) 25 Mg Tablet 25 Mg PO DAILY Fluticasone Propionate Nasal [place] (Fluticasone Propionate) 16 Gm [place].susp 2 [place] NS DAILY Tamsulosin Hcl 0.4 Mg Cap.er.24h 0.4 Mg PO HS Venlafaxine Hcl Er (Venlafaxine Hcl) 150 Mg Cap.er.24h 150 Mg PO DAILY Donepezil Hcl 10 Mg Tablet 10 Mg PO DAILY Depakote Sprinkle (Divalproex Sodium) 125 Mg Cap.sprink 250 Mg PO BID Colace (Docusate Sodium) 100 Mg Capsule 100 Mg PO DAILY Atorvastatin Calcium 10 Mg Tablet 10 Mg PO DAILY Lorazepam 2 Mg/1 Ml Vial 0.5 Ml IM PRN Q6HRS PRN Aldactone (Spironolactone) 25 Mg Tablet 25 Mg PO DAILY Acetaminophen 325 Mg Tablet 650 Mg PO PRN Q4HRS PRN I have reviewed the current psychotropics carefully including drug interactions. Risk benefit ratio favors no change other than as noted in my dictated progress note. Diagnosis: Problems: (1) Dementia with behavioral disturbance (2) Anxiety disorder (3) Dementia in Alzheimer's disease with delusions (4) Dementia in Alzheimer's disease with depression (5) Dementia, vascular, with delusions (6) Dementia, vascular, with depression (7) Impulse control disorder MORIS CHAVEZ MD Nov 22, 2018 21:50
--- NOTE | 2018-11-22 22:44 | PN ---
DATE: 11/21/2018 This late entry for 11/21/2018 covers elements not covered in my initial note. SUBJECTIVE: I met with the patient in the evening and staffed at a treatment team meeting with the entire team in the evening. Appetite 75% of her meals, slept 6-1/4 hours. UA is positive for UTI, gram-negative. We will defer to Dr. Allison. REVIEW OF SYSTEMS: No CV, , pulmonary, eye, ENT system symptoms on review. Reliability poor. MENTAL STATUS EXAM: Oriented to herself, situation. Speech is coherent, has some latency. Abstraction fair, computation impaired, language function intact, attention span short. Mood and affect somewhat withdrawn. LABORATORY DATA: Reviewed. IMPRESSION: Unchanged from initial note. PLAN: Increase Zoloft to 50 mg a day after she has been on 25 for 3 days. Rest unchanged. Defer treatment of UTI to Dr. Allison. MORIS CHAVEZ MD DR: KRISTOPHER/samantha JOB#: [id number] / [id number]
--- NOTE | 2018-11-22 23:07 | PN ---
DATE: 11/20/2018 This is a late entry for 11/20/2018 and covers elements not covered in my initial note. SUBJECTIVE: I met with the patient in the evening. The patient slept 6-1/4 hours previous night. Refuses her medications, takes them crushed in pudding, remains confused, more so at certain times. REVIEW OF SYSTEMS: Ambulates independently. No CV, , pulmonary, eye system symptoms on review. MENTAL STATUS EXAM: Oriented to herself and situation. Speech has some latency, coherent, often responses monosyllabic. Abstraction fair, computation impaired, language function intact. Mood and affect withdrawn. LABORATORY DATA: Reviewed. Takes medications crushed in pudding. IMPRESSION: Major neurocognitive disorder, Alzheimer's vascular with delusion, depression; major depressive disorder; anxiety disorder, unspecified; impulse control disorder, unspecified. PLAN: No change from initial note. She was on a combination of Zoloft and Effexor and we will stop the Effexor. MORIS CHAVEZ MD DR: KRISTOPHER/samantha JOB#: [id number] / [id number]
[2018-11-23 05:48] VITALS: BP 102/62
[2018-11-23] MEDS: SPIRONOLACTONE 25 MG TABLET PO SCH ×2 (07:40→09:00)
[2018-11-23] MEDS: hydroCHLOROthiazide 25 MG TABLET PO SCH ×2 (07:40→09:00)
[2018-11-23] MEDS: LACTOBACILLUS RHAMNOSUS GG 1 CAPSULE. PO SCH ×3 (07:40→19:21)
[2018-11-23] MEDS: DOCUSATE SODIUM 100 MG CAPSULE PO SCH ×2 (07:40→09:00)
[2018-11-23] MEDS: ATORVASTATIN CALCIUM 10 MG TABLET. PO SCH ×2 (07:40→09:00)
[2018-11-23] MEDS: CIPROFLOXACIN HCL 250 MG TABLET PO SCH ×2 (07:40→19:21)
[2018-11-23] MEDS: DONEPEZIL HCL 10 MG TABLET PO SCH ×2 (07:40→09:00)
[2018-11-23] MEDS: PANTOPRAZOLE 40 MG TABLET. PO SCH ×3 (07:40→19:21)
[2018-11-23] MEDS: POTASSIUM CHLORIDE 20 MEQ TABLET.ER. PO SCH ×3 (07:40→19:21)
[2018-11-23] MEDS: POLYETHYLENE GLYCOL 3350 17 GM PACKET. PO SCH ×2 (07:41→09:00)
[2018-11-23] MEDS: DIVALPROEX 125 MG CAP.SPRINK PO SCH ×3 (07:41→19:21)
[2018-11-23] MEDS: MEMANTINE 10 MG TABLET. PO SCH ×4 (07:41→19:21)
[2018-11-23] MEDS: SERTRALINE 50 MG TABLET. PO SCH (07:41)
[2018-11-23] MEDS: FLUTICASONE 50MCG/NASAL SPRAY 16GM BOTTLE. NS SCH ×2 (07:45→09:00)
--- NOTE | 2018-11-23 14:53 | NUR ---
Patient was calm and cooperative with physical assessment, but was dismissive when being asked orientation questions. Patient stated, "I don't keep track of the year anymore." Pt refused morning meds, and meds were crushed and hidden in chocolate boost mixed with chocolate milk. Patient refused to drink the boost during breakfast. Boost was transferred to a cup with a spoon. Pt was in the day room where her boost was brought to her from the dining room. Patient took one bite of the boost and said "that tastes bitter" and asked "what medicine is in it"? This nurse said that there were vitamins in it and pt stated, "well it tastes bitter. I don't want it." This nurse attempted a second time to get pt to take psychiatric morning meds and antibiotics by crushing the meds and mixing them in a tea, which was put in a non-transparent foam cup with a lid and straw. Patient drank approximately 10% of this drink.
[2018-11-23 15:32] VITALS: BP 129/79
[2018-11-23] MEDS: TAMSULOSIN 0.4 MG CAP.ER.24H. PO SCH (19:21)
[2018-11-23] MEDS: MIRTAZAPINE 7.5 MG TABLET. PO SCH (21:15)
--- NOTE | 2018-11-23 21:52 | PDOC ---
Exam Note: Yandel Note: Please also refer to the separate dictated note~for this date of service dictated separately.~Patient seen individually. Discussed the patient with Nursing staff reviewed the chart.~Reviewed interim history and current functioning. Reviewed vital signs,~Labs/ Radiology~and current medications noted below. Continue current treatment with the changes noted in the dictated addendum note Assessment: Vital Signs: Vital Signs Date Time Temp Pulse Resp B/P (MAP) Pulse Ox O2 Delivery O2 Flow Rate FiO2 11/23/18 15:32 98.0 87 15 129/79 (96) 97 11/23/18 05:48 Room Air I&O Intake and Output 11/23/18 06:59 Intake Total 960 ml Balance 960 ml Intake Oral 960 ml Current Medications: Meds: Current Medications Potassium Chloride (Klor-Con) 40 meq 1X ONCE PO Last administered on at 21:41; Start 11/18/18 at 20:30; Stop 11/18/18 at 20:31; Status DC Multi-Ingredient Ointment (Analgesic [place]) 1 isr[place] PRN QID PRN TP MUSCLE PAIN; Start 11/18/18 at 21:30 Al Hydroxide/Mg Hydroxide (Mylanta Plus Xs) 15 ml PRN AFTMEALHC PRN PO DYSPEPSIA; Start 11/18/18 at 21:30 Magnesium Hydroxide (Milk Of Magnesia) 2,400 mg PRN QHS PRN PO CONSTIPATION; Start 11/18/18 at 21:30 Divalproex Sodium (Depakote Sprinkles) 250 mg BID PO Last administered on at 19:21; Start 11/18/18 at 22:15 Donepezil HCl (Aricept) 10 mg DAILY PO Last administered on 11/22/18at 07:44; Start 11/19/18 at 09:00 Memantine (Namenda) 10 mg BID PO Last administered on 11/23/18 19:21; Start at 09:00 Sertraline HCl (Zoloft) 25 mg DAILY PO Last administered on 11/21/18at 07:59; Start 11/19/18 at 09:00; Stop 11/21/18 at 13:14; Status DC Venlafaxine HCl (Effexor) 50 mg TID PO Last administered on 11/19/18at 15:24; Start 11/19/18 at 09:00; Stop 11/19/18 at 19:17; Status DC Acetaminophen (Tylenol) 650 mg PRN Q4HRS PRN PO PAIN / TEMP; Start 11/18/18 at 21:45 Hydrochlorothiazide (Hydrodiuril) 25 mg DAILY PO Last administered on 08:00; Start 11/19/18 at 09:00 Tamsulosin HCl (Flomax) 0.4 mg HS PO Last administered on 11/23/18 19:21; Start 11/18/18 at 22:15 Atorvastatin Calcium (Lipitor) 10 mg DAILY PO Last administered on 11/22/18 07: 45; Start 11/19/18 at 09:00 Docusate Sodium (Colace) 100 mg DAILY PO Last administered on 11/22/18 07:44; Start 11/19/18 at 09:00 Fluticasone Propionate (Flonase) 2 spray DAILY NS Last administered on 10:08; Start 11/19/18 at 09:00 Loperamide HCl (Imodium) 2 mg PRN Q6HRS PRN PO DIARRHEA; Start 11/18/18 at 22: 15 Non-Formulary Medication (Omeprazole ) 20 mg DAILY PO ; Start 11/19/18 at 09:00 ; Status UNV Ondansetron HCl (Zofran Odt) 4 mg PRN Q6HRS PRN PO NAUSEA/VOMITING; Start 11/18 at 22:15 Pantoprazole Sodium (Protonix) 40 mg BID PO Last administered on 11/23/18 19:21 ; Start 11/18/18 at 22:15 Polyethylene Glycol (miraLAX) 17 gm DAILY PO Last administered on 11/22/18 07: 45; Start 11/19/18 at 09:00 Polyethylene Glycol (miraLAX) 17 gm PRN Q12HR PRN PO CONSTIPATION; Start at 22:15 Potassium Chloride (Klor-Con) 20 meq BID PO Last administered on 11/23/18 19:21 ; Start 11/18/18 at 22:15 Spironolactone (Aldactone) 25 mg DAILY PO Last administered on 11/22/18 07:45; Start 11/19/18 at 09:00 Sertraline HCl (Zoloft) 50 mg DAILY PO Last administered on 11/23/18at 07:41; Start 11/22/18 at 09:00 Ciprofloxacin (Cipro) 250 mg BID PO Last administered on 11/23/18at 19:21; Start 11/22/18 at 21:00 Lactobacillus Rhamnosus (Culturelle) 1 cap BID PO Last administered on at 19:21; Start 11/22/18 at 21:00 Mirtazapine (Remeron) 7.5 mg QHS PO Last administered on 11/23/18at 21:15; Start 11/23/18 at 21:15 Active Scripts Active Reported Ondansetron Hcl 4 Mg Tablet 4 Mg PO PRN Q6HRS PRN Zoloft (Sertraline Hcl) 25 Mg Tablet 25 Mg PO DAILY Pantoprazole Sodium 40 Mg Tablet.dr 40 Mg PO BID Potassium Chloride 20 Meq Tablet.er 20 Meq PO BID Miralax (Polyethylene Glycol 3350) 17 Gm Powd.pack 17 Gm PO PRN Q12HR PRN Miralax (Polyethylene Glycol 3350) 17 Gm Powd.pack 17 Gm PO DAILY Omeprazole 20 Mg Tablet.dr 20 Mg PO DAILY Namenda Xr (Memantine Hcl) 28 Mg Cap.spr.24 28 Mg PO DAILY Loperamide (Loperamide Hcl) 2 Mg Tablet 2 Mg PO PRN Q6HRS PRN Hydrochlorothiazide Tablet (Hydrochlorothiazide) 25 Mg Tablet 25 Mg PO DAILY Fluticasone Propionate Nasal [place] (Fluticasone Propionate) 16 Gm [place].susp 2 [place] NS DAILY Tamsulosin Hcl 0.4 Mg Cap.er.24h 0.4 Mg PO HS Venlafaxine Hcl Er (Venlafaxine Hcl) 150 Mg Cap.er.24h 150 Mg PO DAILY Donepezil Hcl 10 Mg Tablet 10 Mg PO DAILY Depakote Sprinkle (Divalproex Sodium) 125 Mg Cap.sprink 250 Mg PO BID Colace (Docusate Sodium) 100 Mg Capsule 100 Mg PO DAILY Atorvastatin Calcium 10 Mg Tablet 10 Mg PO DAILY Lorazepam 2 Mg/1 Ml Vial 0.5 Ml IM PRN Q6HRS PRN Aldactone (Spironolactone) 25 Mg Tablet 25 Mg PO DAILY Acetaminophen 325 Mg Tablet 650 Mg PO PRN Q4HRS PRN I have reviewed the current psychotropics carefully including drug interactions. Risk benefit ratio favors no change other than as noted in my dictated progress note. Diagnosis: Problems: (1) Dementia with behavioral disturbance (2) Anxiety disorder (3) Dementia in Alzheimer's disease with delusions (4) Dementia in Alzheimer's disease with depression (5) Dementia, vascular, with delusions (6) Dementia, vascular, with depression (7) Impulse control disorder MORIS CHAVEZ MD Nov 23, 2018 21:52
--- NOTE | 2018-11-23 22:05 | NUR ---
Pt withdrawn to her room, laying in bed at shift change. Pt resistive and irritable when approached. Pt was cooperative with assessment but resistive with medications. HS medications were crushed and mixed in a chocolate shake. After encouragement from several staff members, pt consumed shake. Pt was also started on Remeron 7.5mg tonight.
[2018-11-24 06:01] VITALS: BP 90/52
[2018-11-24] MEDS: POTASSIUM CHLORIDE 20 MEQ TABLET.ER. PO SCH ×2 (08:59→21:33)
[2018-11-24] MEDS: PANTOPRAZOLE 40 MG TABLET. PO SCH ×2 (08:59→21:32)
[2018-11-24] MEDS: ATORVASTATIN CALCIUM 10 MG TABLET. PO SCH (08:59)
[2018-11-24] MEDS: DONEPEZIL HCL 10 MG TABLET PO SCH (08:59)
[2018-11-24] MEDS: LACTOBACILLUS RHAMNOSUS GG 1 CAPSULE. PO SCH ×2 (09:00→21:33)
[2018-11-24] MEDS: FLUTICASONE 50MCG/NASAL SPRAY 16GM BOTTLE. NS SCH (09:00)
[2018-11-24] MEDS: MEMANTINE 10 MG TABLET. PO SCH ×2 (09:00→21:33)
[2018-11-24] MEDS: CIPROFLOXACIN HCL 250 MG TABLET PO SCH ×2 (09:00→21:33)
[2018-11-24] MEDS: hydroCHLOROthiazide 25 MG TABLET PO SCH (09:00)
[2018-11-24] MEDS: POLYETHYLENE GLYCOL 3350 17 GM PACKET. PO SCH (09:00)
[2018-11-24] MEDS: SERTRALINE 50 MG TABLET. PO SCH (09:00)
[2018-11-24] MEDS: DIVALPROEX 125 MG CAP.SPRINK PO SCH ×2 (09:00→21:32)
[2018-11-24] MEDS: DOCUSATE SODIUM 100 MG CAPSULE PO SCH (09:01)
[2018-11-24 09:17] VITALS: BP 105/54
[2018-11-24] MEDS: SPIRONOLACTONE 25 MG TABLET PO SCH (09:17)
--- NOTE | 2018-11-24 09:49 | NUR ---
Behavior Intervention Response and Plan: BIRP Note: Behavior: Assumed Care of patient, patient located in Day Room at shift change. Patient exhibited the following behavior Calm, Resistive, Non Compliant with Meds. Brief assessment on rounds of vital signs, medication needs, lab studies, and pain. Treatment plan problems . Intervention: Patient assessed and the following interventions initiated safety checks 15 Minute Checks Personal Alarm in place , Cognitive Assessment , Head to toe Assessment. Response: After interactions and interventions patient responded in the following manner, Calm , Resistive ,Cooperative. Continue to assess behaviors and condition will continue to monitor throughout the shift as needed. Patient educated on ADL's, and hand hygiene. Plan: Continue to monitor Master Treatment Plan for patient's progress toward short term goals of Medication Compliance, Improved Mood, emt intermediate goals to return to previous living setting vs placement. Continue to assess patient for changes in above assessment. Monitor for medication needs, pain, and safety concerns. Hourly rounding performed to ensure safe environment.
[2018-11-24 16:05] VITALS: BP 104/68
[2018-11-24] MEDS: MIRTAZAPINE 7.5 MG TABLET. PO SCH (21:33)
[2018-11-24] MEDS: TAMSULOSIN 0.4 MG CAP.ER.24H. PO SCH (21:33)
--- NOTE | 2018-11-24 22:02 | PN ---
DATE: 11/22/2018 PSYCHIATRIC PROGRESS NOTE This late entry 11/22/2018 covers elements not covered in my initial note. SUBJECTIVE: I met with the patient in the evening. The patient slept 5-1/4 hours previous night. The patient is irritable in the morning, refused her medications, took boost. Cipro has been started for UTI. REVIEW OF SYSTEMS: No CV, , pulmonary, eye, ENT system symptoms on review. Reliability poor. MENTAL STATUS EXAM: Oriented to herself and situation. Speech has some latency, coherent. Abstraction fair, computation impaired, language function intact, attention span short. Memory is impaired. IMPRESSION: Unchanged from initial note. PLAN: Treat the UTI. Continue rest psychotropics from initial note. MAN Michelle CHAVEZ MD DR: KRISTOPHER/samantha JOB#: [id number] / [id number]
--- NOTE | 2018-11-24 22:39 | PDOC ---
Exam Note: Yandel Note: Please also refer to the separate dictated note~for this date of service dictated separately.~Patient seen individually. Discussed the patient with Nursing staff reviewed the chart.~Reviewed interim history and current functioning. Reviewed vital signs,~Labs/ Radiology~and current medications noted below. Continue current treatment with the changes noted in the dictated addendum note Assessment: Vital Signs: Vital Signs Date Time Temp Pulse Resp B/P (MAP) Pulse Ox O2 Delivery O2 Flow Rate FiO2 11/24/18 16:05 98.3 69 18 104/68 (80) 99 11/23/18 05:48 Room Air I&O Intake and Output 11/24/18 07:00 Intake Total 900 ml Balance 900 ml Intake Oral 900 ml # Bowel Movements 1 Current Medications: Meds: Current Medications Potassium Chloride (Klor-Con) 40 meq 1X ONCE PO Last administered on at 21:41; Start 11/18/18 at 20:30; Stop 11/18/18 at 20:31; Status DC Multi-Ingredient Ointment (Analgesic [place]) 1 isrrael PRN QID PRN TP MUSCLE PAIN; Start 11/18/18 at 21:30 Al Hydroxide/Mg Hydroxide (Mylanta Plus Xs) 15 ml PRN AFTMEALHC PRN PO DYSPEPSIA; Start 11/18/18 at 21:30 Magnesium Hydroxide (Milk Of Magnesia) 2,400 mg PRN QHS PRN PO CONSTIPATION; Start 11/18/18 at 21:30 Divalproex Sodium (Depakote Sprinkles) 250 mg BID PO Last administered on at 21:32; Start 11/18/18 at 22:15 Donepezil HCl (Aricept) 10 mg DAILY PO Last administered on 11/24/18at 08:59; Start 11/19/18 at 09:00 Memantine (Namenda) 10 mg BID PO Last administered on 11/24/18at 21:33; Start at 09:00 Sertraline HCl (Zoloft) 25 mg DAILY PO Last administered on 11/21/18at 07:59; Start 11/19/18 at 09:00; Stop 11/21/18 at 13:14; Status DC Venlafaxine HCl (Effexor) 50 mg TID PO Last administered on 2/26/19at 15:24; Start 11/19/18 at 09:00; Stop 11/19/18 at 19:17; Status DC Acetaminophen (Tylenol) 650 mg PRN Q4HRS PRN PO PAIN / TEMP; Start 11/18/18 at 21:45 Hydrochlorothiazide (Hydrodiuril) 25 mg DAILY PO Last administered on 11/24/18 09:00; Start 11/19/18 at 09:00 Tamsulosin HCl (Flomax) 0.4 mg HS PO Last administered on 11/24/18 21:33; Start 11/18/18 at 22:15 Atorvastatin Calcium (Lipitor) 10 mg DAILY PO Last administered on 11/24/18 08: 59; Start 11/19/18 at 09:00 Docusate Sodium (Colace) 100 mg DAILY PO Last administered on 11/24/18 09:01; Start 11/19/18 at 09:00 Fluticasone Propionate (Flonase) 2 spray DAILY NS Last administered on 09:00; Start 11/19/18 at 09:00 Loperamide HCl (Imodium) 2 mg PRN Q6HRS PRN PO DIARRHEA; Start 11/18/18 at 22: 15 Non-Formulary Medication (Omeprazole ) 20 mg DAILY PO ; Start 11/19/18 at 09:00 ; Status UNV Ondansetron HCl (Zofran Odt) 4 mg PRN Q6HRS PRN PO NAUSEA/VOMITING; Start 11/18 at 22:15 Pantoprazole Sodium (Protonix) 40 mg BID PO Last administered on 11/24/18 21:32 ; Start 11/18/18 at 22:15 Polyethylene Glycol (miraLAX) 17 gm DAILY PO Last administered on 11/24/18 09: 00; Start 11/19/18 at 09:00 Polyethylene Glycol (miraLAX) 17 gm PRN Q12HR PRN PO CONSTIPATION; Start at 22:15 Potassium Chloride (Klor-Con) 20 meq BID PO Last administered on 11/24/18 21:33 ; Start 11/18/18 at 22:15 Spironolactone (Aldactone) 25 mg DAILY PO Last administered on 11/24/18 09:17; Start 11/19/18 at 09:00 Sertraline HCl (Zoloft) 50 mg DAILY PO Last administered on 11/24/18 09:00; Start 11/22/18 at 09:00 Ciprofloxacin (Cipro) 250 mg BID PO Last administered on 11/24/18at 21:33; Start 11/22/18 at 21:00 Lactobacillus Rhamnosus (Culturelle) 1 cap BID PO Last administered on 21:33; Start 11/22/18 at 21:00 Mirtazapine (Remeron) 7.5 mg QHS PO Last administered on 11/24/18 21:33; Start 11/23/18 at 21:15 Active Scripts Active Reported Ondansetron Hcl 4 Mg Tablet 4 Mg PO PRN Q6HRS PRN Zoloft (Sertraline Hcl) 25 Mg Tablet 25 Mg PO DAILY Pantoprazole Sodium 40 Mg Tablet.dr 40 Mg PO BID Potassium Chloride 20 Meq Tablet.er 20 Meq PO BID Miralax (Polyethylene Glycol 3350) 17 Gm Powd.pack 17 Gm PO PRN Q12HR PRN Miralax (Polyethylene Glycol 3350) 17 Gm Powd.pack 17 Gm PO DAILY Omeprazole 20 Mg Tablet.dr 20 Mg PO DAILY Namenda Xr (Memantine Hcl) 28 Mg Cap.spr.24 28 Mg PO DAILY Loperamide (Loperamide Hcl) 2 Mg Tablet 2 Mg PO PRN Q6HRS PRN Hydrochlorothiazide Tablet (Hydrochlorothiazide) 25 Mg Tablet 25 Mg PO DAILY Fluticasone Propionate Nasal [place] (Fluticasone Propionate) 16 Gm [place].susp 2 [place] NS DAILY Tamsulosin Hcl 0.4 Mg Cap.er.24h 0.4 Mg PO HS Venlafaxine Hcl Er (Venlafaxine Hcl) 150 Mg Cap.er.24h 150 Mg PO DAILY Donepezil Hcl 10 Mg Tablet 10 Mg PO DAILY Depakote Sprinkle (Divalproex Sodium) 125 Mg Cap.sprink 250 Mg PO BID Colace (Docusate Sodium) 100 Mg Capsule 100 Mg PO DAILY Atorvastatin Calcium 10 Mg Tablet 10 Mg PO DAILY Lorazepam 2 Mg/1 Ml Vial 0.5 Ml IM PRN Q6HRS PRN Aldactone (Spironolactone) 25 Mg Tablet 25 Mg PO DAILY Acetaminophen 325 Mg Tablet 650 Mg PO PRN Q4HRS PRN I have reviewed the current psychotropics carefully including drug interactions. Risk benefit ratio favors no change other than as noted in my dictated progress note. 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
--- NOTE | 2018-11-25 01:32 | NUR ---
Patient asleep in bed. Patient has 5-6 blankets on bed with flannel pajamas on and is still complaining that she is cold. Room temperature is set at 75F. Patient has history of being resistive to meds, HS medications were given crushed and hidden in 120 oz of chocolate boost in a small glass. Nurse told patient it was a "protein-vitamin shake" for wound healing. (she has an old skin tear on her hand) She was compliant with drinking shake and then laid back down and went to bed.
[2018-11-25 05:44] VITALS: BP 104/69
[2018-11-25] MEDS: POTASSIUM CHLORIDE 20 MEQ TABLET.ER. PO SCH ×2 (07:43→19:53)
[2018-11-25] MEDS: ATORVASTATIN CALCIUM 10 MG TABLET. PO SCH (07:43)
[2018-11-25] MEDS: DIVALPROEX 125 MG CAP.SPRINK PO SCH ×2 (07:43→19:53)
[2018-11-25] MEDS: PANTOPRAZOLE 40 MG TABLET. PO SCH ×2 (07:43→19:53)
[2018-11-25] MEDS: SERTRALINE 50 MG TABLET. PO SCH (07:43)
[2018-11-25] MEDS: CIPROFLOXACIN HCL 250 MG TABLET PO SCH ×2 (07:43→19:53)
[2018-11-25] MEDS: SPIRONOLACTONE 25 MG TABLET PO SCH (07:43)
[2018-11-25] MEDS: DOCUSATE SODIUM 100 MG CAPSULE PO SCH (07:43)
[2018-11-25] MEDS: FLUTICASONE 50MCG/NASAL SPRAY 16GM BOTTLE. NS SCH (07:44)
[2018-11-25] MEDS: POLYETHYLENE GLYCOL 3350 17 GM PACKET. PO SCH (07:44)
[2018-11-25] MEDS: LACTOBACILLUS RHAMNOSUS GG 1 CAPSULE. PO SCH ×2 (07:44→19:53)
[2018-11-25] MEDS: DONEPEZIL HCL 10 MG TABLET PO SCH (07:44)
[2018-11-25] MEDS: hydroCHLOROthiazide 25 MG TABLET PO SCH (07:44)
[2018-11-25] MEDS: MEMANTINE 10 MG TABLET. PO SCH ×2 (07:44→19:53)
[2018-11-25 16:04] VITALS: BP 119/75
--- NOTE | 2018-11-25 18:53 | NUR ---
Behavior Intervention Response and Plan: BIRP Note: Behavior: Assumed Care of patient, patient located in Patient Room at shift change. Patient exhibited the following behavior Calm, Disorganized, Compliant. Brief assessment on rounds of vital signs, medication needs, lab studies, and pain. Treatment plan problems . Intervention: Patient assessed and the following interventions initiated safety checks 15 Minute Checks Head to toe Assessment , Cognitive Assessment , Medications. Response: After interactions and interventions patient responded in the following manner, Withdrawn , calm ,Appropriate. Continue to assess behaviors and condition will continue to monitor throughout the shift as needed. Patient educated on ADL's, and hand hygiene. 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 Continue to assess patient for changes in above assessment. Monitor for medication needs, pain, and safety concerns. Hourly rounding performed to ensure safe environment.
[2018-11-25] MEDS: TAMSULOSIN 0.4 MG CAP.ER.24H. PO SCH (19:53)
[2018-11-25] MEDS: MIRTAZAPINE 7.5 MG TABLET. PO SCH (19:53)
--- NOTE | 2018-11-25 20:53 | PN ---
DATE: 11/23/2018 PSYCHIATRIC PROGRESS NOTE This late entry 11/23/2018 covers elements not covered in my initial note. SUBJECTIVE: I met with the patient in the evening. The patient slept 4 hours previous night, somewhat irritable, withdrawn, refused her medications including Zoloft and Cipro at 3:00 p.m. REVIEW OF SYSTEMS: Ambulation is reasonable. No CV, , pulmonary, eye system symptoms on review. Reliability poor. MENTAL STATUS EXAM: Oriented to herself and situation. Insight, judgment, recent memory is impaired. Language function intact. Attention span short. Mood and affect somewhat withdrawn, anxious, labile at times. LABORATORY DATA: Reviewed. IMPRESSION: Unchanged from initial note. PLAN: No change from initial note. We will start Remeron 7.5 mg p.o. at bedtime to help with insomnia and anxiety. MAN Michelle CHAVEZ MD DR: KRISTOPHER/samantha JOB#: [id number] / [id number]
--- NOTE | 2018-11-25 21:09 | PN ---
DATE: 11/24/2018 PSYCHIATRIC PROGRESS NOTE This late entry 11/24/2018 covers elements not covered in my initial note. SUBJECTIVE: I met with the patient in the evening. The patient slept 7 hours previous night, remains resistive to medications, took it in Boost, somewhat withdrawn, confused. REVIEW OF SYSTEMS: No CV, , pulmonary, eye, ENT system symptoms on review. MENTAL STATUS EXAM: Oriented to herself. Insight, judgment, recent memory is impaired. Language function intact. Attention is span short. Mood and affect somewhat withdrawn. LABORATORY DATA: Reviewed. IMPRESSION: Unchanged from initial note. PLAN: No change from initial note. MORIS CHAVEZ MD DR: KRISTOPHER/samantha JOB#: [id number] / [id number]
--- NOTE | 2018-11-25 22:31 | PDOC ---
Exam Note: Yandel Note: Please also refer to the separate dictated note~for this date of service dictated separately.~Patient seen individually. Discussed the patient with Nursing staff reviewed the chart.~Reviewed interim history and current functioning. Reviewed vital signs,~Labs/ Radiology~and current medications noted below. Continue current treatment with the changes noted in the dictated addendum note Assessment: Vital Signs: Vital Signs Date Time Temp Pulse Resp B/P (MAP) Pulse Ox O2 Delivery O2 Flow Rate FiO2 11/25/18 16:04 98.4 75 16 119/75 (90) 99 11/23/18 05:48 Room Air I&O Intake and Output 11/25/18 07:00 Intake Total 840 ml Balance 840 ml Intake Oral 840 ml Current Medications: Meds: Current Medications Potassium Chloride (Klor-Con) 40 meq 1X ONCE PO Last administered on at 21:41; Start 11/18/18 at 20:30; Stop 11/18/18 at 20:31; Status DC Multi-Ingredient Ointment (Analgesic [place]) 1 isrrael PRN QID PRN TP MUSCLE PAIN; Start 11/18/18 at 21:30 Al Hydroxide/Mg Hydroxide (Mylanta Plus Xs) 15 ml PRN AFTMEALHC PRN PO DYSPEPSIA; Start 11/18/18 at 21:30 Magnesium Hydroxide (Milk Of Magnesia) 2,400 mg PRN QHS PRN PO CONSTIPATION; Start 11/18/18 at 21:30 Divalproex Sodium (Depakote Sprinkles) 250 mg BID PO Last administered on 19:53; Start 11/18/18 at 22:15 Donepezil HCl (Aricept) 10 mg DAILY PO Last administered on 11/25/18at 07:44; Start 11/19/18 at 09:00 Memantine (Namenda) 10 mg BID PO Last administered on 11/25/18 19:53; Start at 09:00 Sertraline HCl (Zoloft) 25 mg DAILY PO Last administered on 11/21/18at 07:59; Start 11/19/18 at 09:00; Stop 11/21/18 at 13:14; Status DC Venlafaxine HCl (Effexor) 50 mg TID PO Last administered on 11/19/18at 15:24; Start 11/19/18 at 09:00; Stop 11/19/18 at 19:17; Status DC Acetaminophen (Tylenol) 650 mg PRN Q4HRS PRN PO PAIN / TEMP; Start 11/18/18 at 21:45 Hydrochlorothiazide (Hydrodiuril) 25 mg DAILY PO Last administered on 11/25/18 07:44; Start 11/19/18 at 09:00 Tamsulosin HCl (Flomax) 0.4 mg HS PO Last administered on 11/25/18 19:53; Start 11/18/18 at 22:15 Atorvastatin Calcium (Lipitor) 10 mg DAILY PO Last administered on 11/25/18 07: 43; Start 11/19/18 at 09:00 Docusate Sodium (Colace) 100 mg DAILY PO Last administered on 11/25/18 07:43; Start 11/19/18 at 09:00 Fluticasone Propionate (Flonase) 2 spray DAILY NS Last administered on 07:44; Start 11/19/18 at 09:00 Loperamide HCl (Imodium) 2 mg PRN Q6HRS PRN PO DIARRHEA; Start 11/18/18 at 22: 15 Non-Formulary Medication (Omeprazole ) 20 mg DAILY PO ; Start 11/19/18 at 09:00 ; Status UNV Ondansetron HCl (Zofran Odt) 4 mg PRN Q6HRS PRN PO NAUSEA/VOMITING; Start 11/18 at 22:15 Pantoprazole Sodium (Protonix) 40 mg BID PO Last administered on 11/25/18 19:53 ; Start 11/18/18 at 22:15 Polyethylene Glycol (miraLAX) 17 gm DAILY PO Last administered on 11/25/18 07: 44; Start 11/19/18 at 09:00 Polyethylene Glycol (miraLAX) 17 gm PRN Q12HR PRN PO CONSTIPATION; Start at 22:15 Potassium Chloride (Klor-Con) 20 meq BID PO Last administered on 11/25/18 19:53 ; Start 11/18/18 at 22:15 Spironolactone (Aldactone) 25 mg DAILY PO Last administered on 11/25/18 07:43; Start 11/19/18 at 09:00 Sertraline HCl (Zoloft) 50 mg DAILY PO Last administered on 11/25/18at 07:43; Start 11/22/18 at 09:00 Ciprofloxacin (Cipro) 250 mg BID PO Last administered on 11/25/18at 19:53; Start 11/22/18 at 21:00 Lactobacillus Rhamnosus (Culturelle) 1 cap BID PO Last administered on at 19:53; Start 11/22/18 at 21:00 Mirtazapine (Remeron) 7.5 mg QHS PO Last administered on 11/25/18at 19:53; Start 11/23/18 at 21:15 Sertraline HCl (Zoloft) 75 mg DAILY PO ; Start 11/26/18 at 09:00 Active Scripts Active Reported Ondansetron Hcl 4 Mg Tablet 4 Mg PO PRN Q6HRS PRN Zoloft (Sertraline Hcl) 25 Mg Tablet 25 Mg PO DAILY Pantoprazole Sodium 40 Mg Tablet.dr 40 Mg PO BID Potassium Chloride 20 Meq Tablet.er 20 Meq PO BID Miralax (Polyethylene Glycol 3350) 17 Gm Powd.pack 17 Gm PO PRN Q12HR PRN Miralax (Polyethylene Glycol 3350) 17 Gm Powd.pack 17 Gm PO DAILY Omeprazole 20 Mg Tablet.dr 20 Mg PO DAILY Namenda Xr (Memantine Hcl) 28 Mg Cap.spr.24 28 Mg PO DAILY Loperamide (Loperamide Hcl) 2 Mg Tablet 2 Mg PO PRN Q6HRS PRN Hydrochlorothiazide Tablet (Hydrochlorothiazide) 25 Mg Tablet 25 Mg PO DAILY Fluticasone Propionate Nasal [place] (Fluticasone Propionate) 16 Gm [place].susp 2 [place] NS DAILY Tamsulosin Hcl 0.4 Mg Cap.er.24h 0.4 Mg PO HS Venlafaxine Hcl Er (Venlafaxine Hcl) 150 Mg Cap.er.24h 150 Mg PO DAILY Donepezil Hcl 10 Mg Tablet 10 Mg PO DAILY Depakote Sprinkle (Divalproex Sodium) 125 Mg Cap.sprink 250 Mg PO BID Colace (Docusate Sodium) 100 Mg Capsule 100 Mg PO DAILY Atorvastatin Calcium 10 Mg Tablet 10 Mg PO DAILY Lorazepam 2 Mg/1 Ml Vial 0.5 Ml IM PRN Q6HRS PRN Aldactone (Spironolactone) 25 Mg Tablet 25 Mg PO DAILY Acetaminophen 325 Mg Tablet 650 Mg PO PRN Q4HRS PRN I have reviewed the current psychotropics carefully including drug interactions. Risk benefit ratio favors no change other than as noted in my dictated progress note. Diagnosis: Problems: (1) Dementia with behavioral disturbance (2) Anxiety disorder (3) Dementia in Alzheimer's disease with delusions (4) Dementia in Alzheimer's disease with depression (5) Dementia, vascular, with delusions (6) Dementia, vascular, with depression (7) Impulse control disorder MORIS CHAVEZ MD Nov 25, 2018 22:31
--- NOTE | 2018-11-25 23:21 | NUR ---
Pt withdrawn to room at shift change. Pt confused, calm with flat affect. Pt cooperative with assessment, medications were crushed and hidden in boost which pt consumed.
[2018-11-26 05:49] VITALS: BP 90/58
[2018-11-26] MEDS: LACTOBACILLUS RHAMNOSUS GG 1 CAPSULE. PO SCH ×2 (07:43→21:33)
[2018-11-26] MEDS: POLYETHYLENE GLYCOL 3350 17 GM PACKET. PO SCH (07:43)
[2018-11-26] MEDS: MEMANTINE 10 MG TABLET. PO SCH ×2 (07:43→21:33)
[2018-11-26] MEDS: CIPROFLOXACIN HCL 250 MG TABLET PO SCH ×2 (07:43→21:33)
[2018-11-26] MEDS: SERTRALINE 50 MG TABLET. PO SCH ×2 (07:43→09:00)
[2018-11-26] MEDS: ATORVASTATIN CALCIUM 10 MG TABLET. PO SCH (07:43)
[2018-11-26] MEDS: hydroCHLOROthiazide 25 MG TABLET PO SCH (07:43)
[2018-11-26] MEDS: DIVALPROEX 125 MG CAP.SPRINK PO SCH ×2 (07:44→21:33)
[2018-11-26] MEDS: DOCUSATE SODIUM 100 MG CAPSULE PO SCH (07:44)
[2018-11-26] MEDS: DONEPEZIL HCL 10 MG TABLET PO SCH (07:44)
[2018-11-26] MEDS: PANTOPRAZOLE 40 MG TABLET. PO SCH ×2 (07:44→21:00)
[2018-11-26] MEDS: POTASSIUM CHLORIDE 20 MEQ TABLET.ER. PO SCH ×2 (07:44→21:34)
[2018-11-26] MEDS: SPIRONOLACTONE 25 MG TABLET PO SCH (07:44)
[2018-11-26] MEDS: SERTRALINE 25 MG TABLET. PO SCH (07:47)
[2018-11-26 07:56] LABS: BASO % 1 % (0-3); EOS # 0.5 x10^3/uL (0.0-0.7); EOS % 12 % (0-3); HEMATOCRIT 36.8 % (36.0-47.0); LYMPH # 1.3 x10^3/uL (1.0-4.8); LYMPH % 34 % (24-48); MEAN CORPUSCULAR HEMOGLOBIN 27 pg (25-35); MEAN CORPUSCULAR HGB CONC 33 g/dL (31-37); MEAN CORPUSCULAR VOLUME 84 fL (79-100); MONO # 0.2 x10^3/uL (0.0-1.1); MONO % 6 % (0-9); NEUT # 1.8 x10^3uL (1.8-7.7); NEUT % 47 % (31-73); PLATELET COUNT 150 x10^3/uL (140-400); RED BLOOD COUNT 4.38 x10^6/uL (3.50-5.40); RED CELL DISTRIBUTION WIDTH 16.1 % (11.5-14.5); WHITE BLOOD COUNT 3.9 x10^3/uL (4.0-11.0)
[2018-11-26 08:12] LABS: ALBUMIN 2.2 g/dL (3.4-5.0); ALBUMIN/GLOBULIN RATIO 0.7 (1.0-1.7); ALK PHOS 67 U/L (46-116); ALT (SGPT) 15 U/L (14-59); ANION GAP 6 (6-14); AST (SGOT) 14 U/L (15-37); BLOOD UREA NITROGEN 21 mg/dL (7-20); BUN/CREATININE RATIO 23 (6-20); CALCIUM 9.2 mg/dL (8.5-10.1); CARBON DIOXIDE 32 mmol/L (21-32); CHLORIDE 109 mmol/L (98-107); CREATININE 0.9 mg/dL (0.6-1.0); GFR 59.8; GLUCOSE 91 mg/dL (70-99); POTASSIUM 3.7 mmol/L (3.5-5.1); SODIUM 147 mmol/L (136-145); TOTAL BILIRUBIN 0.4 mg/dL (0.2-1.0); TOTAL PROTEIN 5.3 g/dL (6.4-8.2)
[2018-11-26 08:19] LABS: VAL ACID 23 mcg/mL (50-100)
[2018-11-26] MEDS: FLUTICASONE 50MCG/NASAL SPRAY 16GM BOTTLE. NS SCH (09:19)
--- NOTE | 2018-11-26 15:26 | NUR ---
Pt has been calm, quiet, and cooperative with assessment. Pt willingly drinks a boost drink when it is explained to her that it will help heal the skin tears on her forearm; thus, pt's meds are crushed in a boost for effective medication administration. Pt appears to be drowsy and states that she is cold often. Pt typically sits in a chair with a blanket wrapped/draped around upper back.
--- NOTE | 2018-11-26 15:50 | NUR ---
Behavior Intervention Response and Plan: BIRP Note: Behavior: Assumed Care of patient, patient located in Day Room at shift change. Patient exhibited the following behavior Drowsy, Calm, Cooperative. Brief assessment on rounds of vital signs, medication needs, lab studies, and pain. Treatment plan problems: alteration in thought process and fall risk. Intervention: Patient assessed and the following interventions initiated safety checks 15 Minute Checks Cognitive Assessment , Head to toe Assessment , Medications. Response: After interactions and interventions patient responded in the following manner, Calm , Cooperative ,Drowsy. Continue to assess behaviors and condition will continue to monitor throughout the shift as needed. Patient educated on ADL's, and hand hygiene. 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 Continue to assess patient for changes in above assessment. Monitor for medication needs, pain, and safety concerns. Hourly rounding performed to ensure safe environment.
[2018-11-26 16:21] VITALS: BP 96/65
--- NOTE | 2018-11-26 18:23 | PN ---
DATE: 11/25/2018 PSYCHIATRIC PROGRESS NOTE This late entry 11/25/2018 covers elements not covered in my initial note. SUBJECTIVE: I met with the patient in the evening. The patient slept 7 hours previous night. The patient remains somewhat confused, resistive to medication, refused medications, took them later and protein drink, somewhat quiet. We will check labs on the morning of 11/26/2018. REVIEW OF SYSTEMS: No CV, , pulmonary, eye, ENT system symptoms on review. MENTAL STATUS EXAM: Oriented to herself, situation at times. Insight, judgment, recent memory is impaired. Language function intact. Attention span short. Mood and affect somewhat withdrawn. LABORATORY DATA: Reviewed. IMPRESSION: Unchanged from initial note. PLAN: Increase Zoloft from 50 mg a day to 75 mg a day. Rest unchanged from initial note. MAN Michelle CHAVEZ MD DR: KRISTOPHER/samantha JOB#: [id number] / [id number]
[2018-11-26] MEDS: TAMSULOSIN 0.4 MG CAP.ER.24H. PO SCH (21:33)
[2018-11-26] MEDS: MIRTAZAPINE 7.5 MG TABLET. PO SCH (21:33)
--- NOTE | 2018-11-26 22:05 | PDOC ---
Exam Note: Yandel Note: Please also refer to the separate dictated note~for this date of service dictated separately.~Patient seen individually. Discussed the patient with Nursing staff reviewed the chart.~Reviewed interim history and current functioning. Reviewed vital signs,~Labs/ Radiology~and current medications noted below. Continue current treatment with the changes noted in the dictated addendum note Assessment: Vital Signs: Vital Signs Date Time Temp Pulse Resp B/P (MAP) Pulse Ox O2 Delivery O2 Flow Rate FiO2 11/26/18 16:21 98.4 80 16 96/65 (75) 98 Room Air I&O Intake and Output 11/26/18 06:59 Intake Total 800 ml Balance 800 ml Intake Oral 800 ml # Bowel Movements 1 Labs: Laboratory Tests Test 11/26/18 07:30 White Blood Count 3.9 x10^3/uL (4.0-11.0) L Red Blood Count 4.38 x10^6/uL (3.50-5.40) Hemoglobin 12.0 g/dL (12.0-15.5) Hematocrit 36.8 % (36.0-47.0) Mean Corpuscular Volume 84 fL (79-100) Mean Corpuscular Hemoglobin 27 pg (25-35) Mean Corpuscular Hemoglobin Concent 33 g/dL (31-37) Red Cell Distribution Width 16.1 % (11.5-14.5) H Platelet Count 150 x10^3/uL (140-400) Neutrophils (%) (Auto) 47 % (31-73) Lymphocytes (%) (Auto) 34 % (24-48) Monocytes (%) (Auto) 6 % (0-9) Eosinophils (%) (Auto) 12 % (0-3) H Basophils (%) (Auto) 1 % (0-3) Neutrophils # (Auto) 1.8 x10^3uL (1.8-7.7) Lymphocytes # (Auto) 1.3 x10^3/uL (1.0-4.8) Monocytes # (Auto) 0.2 x10^3/uL (0.0-1.1) Eosinophils # (Auto) 0.5 x10^3/uL (0.0-0.7) Basophils # (Auto) 0.0 x10^3/uL (0.0-0.2) Sodium Level 147 mmol/L (136-145) H Potassium Level 3.7 mmol/L (3.5-5.1) Chloride Level 109 mmol/L (98-107) H Carbon Dioxide Level 32 mmol/L (21-32) Anion Gap 6 (6-14) Blood Urea Nitrogen 21 mg/dL (7-20) H Creatinine 0.9 mg/dL (0.6-1.0) Estimated GFR (Cockcroft-Gault) 59.8 BUN/Creatinine Ratio 23 (6-20) H Glucose Level 91 mg/dL (70-99) Calcium Level 9.2 mg/dL (8.5-10.1) Magnesium Level 1.9 mg/dL (1.8-2.4) Total Bilirubin 0.4 mg/dL (0.2-1.0) Aspartate Amino Transferase (AST) 14 U/L (15-37) L Alanine Aminotransferase (ALT) 15 U/L (14-59) Alkaline Phosphatase 67 U/L (46-116) Total Protein 5.3 g/dL (6.4-8.2) L Albumin 2.2 g/dL (3.4-5.0) L Albumin/Globulin Ratio 0.7 (1.0-1.7) L Valproic Acid Level 23 mcg/mL (50-100) L Valproic Acid Last Dose Date 11/25/2018 Valproic Acid Last Dose Time 0900 Current Medications: Meds: Current Medications Potassium Chloride (Klor-Con) 40 meq 1X ONCE PO Last administered on at 21:41; Start 11/18/18 at 20:30; Stop 11/18/18 at 20:31; Status DC Multi-Ingredient Ointment (Analgesic [place]) 1 isrrael PRN QID PRN TP MUSCLE PAIN; Start 11/18/18 at 21:30 Al Hydroxide/Mg Hydroxide (Mylanta Plus Xs) 15 ml PRN AFTMEALHC PRN PO DYSPEPSIA; Start 11/18/18 at 21:30 Magnesium Hydroxide (Milk Of Magnesia) 2,400 mg PRN QHS PRN PO CONSTIPATION; Start 11/18/18 at 21:30 Divalproex Sodium (Depakote Sprinkles) 250 mg BID PO Last administered on at 21:33; Start 11/18/18 at 22:15 Donepezil HCl (Aricept) 10 mg DAILY PO Last administered on 11/26/18 07:44; Start 11/19/18 at 09:00 Memantine (Namenda) 10 mg BID PO Last administered on 11/26/18 21:33; Start at 09:00 Sertraline HCl (Zoloft) 25 mg DAILY PO Last administered on 11/21/18 07:59; Start 11/19/18 at 09:00; Stop 11/21/18 at 13:14; Status DC Venlafaxine HCl (Effexor) 50 mg TID PO Last administered on 11/19/18 15:24; Start 11/19/18 at 09:00; Stop 11/19/18 at 19:17; Status DC Acetaminophen (Tylenol) 650 mg PRN Q4HRS PRN PO PAIN / TEMP; Start 11/18/18 at 21:45 Hydrochlorothiazide (Hydrodiuril) 25 mg DAILY PO Last administered on 11/26/18 07:43; Start 11/19/18 at 09:00 Tamsulosin HCl (Flomax) 0.4 mg HS PO Last administered on 11/26/18 21:33; Start 11/18/18 at 22:15 Atorvastatin Calcium (Lipitor) 10 mg DAILY PO Last administered on 11/26/18 07: 43; Start 11/19/18 at 09:00 Docusate Sodium (Colace) 100 mg DAILY PO Last administered on 11/26/18 07:44; Start 11/19/18 at 09:00 Fluticasone Propionate (Flonase) 2 spray DAILY NS Last administered on 09:19; Start 11/19/18 at 09:00 Loperamide HCl (Imodium) 2 mg PRN Q6HRS PRN PO DIARRHEA; Start 11/18/18 at 22: 15 Non-Formulary Medication (Omeprazole ) 20 mg DAILY PO ; Start 11/19/18 at 09:00 ; Status UNV Ondansetron HCl (Zofran Odt) 4 mg PRN Q6HRS PRN PO NAUSEA/VOMITING; Start 11/18 at 22:15 Pantoprazole Sodium (Protonix) 40 mg BID PO Last administered on 11/26/18 07:44 ; Start 11/18/18 at 22:15 Polyethylene Glycol (miraLAX) 17 gm DAILY PO Last administered on 11/26/18 07: 43; Start 11/19/18 at 09:00 Polyethylene Glycol (miraLAX) 17 gm PRN Q12HR PRN PO CONSTIPATION; Start at 22:15 Potassium Chloride (Klor-Con) 20 meq BID PO Last administered on 11/26/18 21:34 ; Start 11/18/18 at 22:15 Spironolactone (Aldactone) 25 mg DAILY PO Last administered on 11/26/18 07:44; Start 11/19/18 at 09:00 Sertraline HCl (Zoloft) 50 mg DAILY PO Last administered on 11/25/18 07:43; Start 11/22/18 at 09:00 Ciprofloxacin (Cipro) 250 mg BID PO Last administered on 11/26/18 21:33; Start 11/22/18 at 21:00 Lactobacillus Rhamnosus (Culturelle) 1 cap BID PO Last administered on 21:33; Start 11/22/18 at 21:00 Mirtazapine (Remeron) 7.5 mg QHS PO Last administered on 11/26/18 21:33; Start 11/23/18 at 21:15 Sertraline HCl (Zoloft) 75 mg DAILY PO Last administered on 11/26/18 07:47; Start 11/26/18 at 09:00 Active Scripts Active Reported Ondansetron Hcl 4 Mg Tablet 4 Mg PO PRN Q6HRS PRN Zoloft (Sertraline Hcl) 25 Mg Tablet 25 Mg PO DAILY Pantoprazole Sodium 40 Mg Tablet.dr 40 Mg PO BID Potassium Chloride 20 Meq Tablet.er 20 Meq PO BID Miralax (Polyethylene Glycol 3350) 17 Gm Powd.pack 17 Gm PO PRN Q12HR PRN Miralax (Polyethylene Glycol 3350) 17 Gm Powd.pack 17 Gm PO DAILY Omeprazole 20 Mg Tablet.dr 20 Mg PO DAILY Namenda Xr (Memantine Hcl) 28 Mg Cap.spr.24 28 Mg PO DAILY Loperamide (Loperamide Hcl) 2 Mg Tablet 2 Mg PO PRN Q6HRS PRN Hydrochlorothiazide Tablet (Hydrochlorothiazide) 25 Mg Tablet 25 Mg PO DAILY Fluticasone Propionate Nasal [place] (Fluticasone Propionate) 16 Gm [place].susp 2 [place] NS DAILY Tamsulosin Hcl 0.4 Mg Cap.er.24h 0.4 Mg PO HS Venlafaxine Hcl Er (Venlafaxine Hcl) 150 Mg Cap.er.24h 150 Mg PO DAILY Donepezil Hcl 10 Mg Tablet 10 Mg PO DAILY Depakote Sprinkle (Divalproex Sodium) 125 Mg Cap.sprink 250 Mg PO BID Colace (Docusate Sodium) 100 Mg Capsule 100 Mg PO DAILY Atorvastatin Calcium 10 Mg Tablet 10 Mg PO DAILY Lorazepam 2 Mg/1 Ml Vial 0.5 Ml IM PRN Q6HRS PRN Aldactone (Spironolactone) 25 Mg Tablet 25 Mg PO DAILY Acetaminophen 325 Mg Tablet 650 Mg PO PRN Q4HRS PRN I have reviewed the current psychotropics carefully including drug interactions. Risk benefit ratio favors no change other than as noted in my dictated progress note. Diagnosis: Problems: (1) Dementia with behavioral disturbance (2) Anxiety disorder (3) Dementia in Alzheimer's disease with delusions (4) Dementia in Alzheimer's disease with depression (5) Dementia, vascular, with delusions (6) Dementia, vascular, with depression (7) Impulse control disorder MORIS CHAVEZ MD Nov 26, 2018 22:05
--- NOTE | 2018-11-26 23:05 | NUR ---
Behavior Intervention Response and Plan: BIRP Note: Behavior: Assumed Care of patient, patient located in Patient Room at shift change. Patient exhibited the following behavior Calm, Interactive, Able to Focus on Task. Brief assessment on rounds of vital signs, medication needs, lab studies, and pain. Treatment plan problems . Intervention: Patient assessed and the following interventions initiated safety checks 15 Minute Checks Head to toe Assessment , Cognitive Assessment , Medications. Response: After interactions and interventions patient responded in the following manner, Compliant , Cooperative ,Appropriate. Continue to assess behaviors and condition will continue to monitor throughout the shift as needed. Patient educated on ADL's, and hand hygiene. Plan: Continue to monitor Master Treatment Plan for patient's progress toward short term goals of Improved Mood, Decreased Agitation, senior care goals to return to previous living setting vs placement. Continue to assess patient for changes in above assessment. Monitor for medication needs, pain, and safety concerns. Hourly rounding performed to ensure safe environment.
[2018-11-27 05:42] VITALS: BP 86/56
[2018-11-27 05:43] VITALS: BP 104/67
[2018-11-27] MEDS: LACTOBACILLUS RHAMNOSUS GG 1 CAPSULE. PO SCH ×2 (08:18→19:52)
[2018-11-27] MEDS: DIVALPROEX 125 MG CAP.SPRINK PO SCH ×2 (08:18→19:53)
[2018-11-27] MEDS: SERTRALINE 25 MG TABLET. PO SCH (08:18)
[2018-11-27] MEDS: ATORVASTATIN CALCIUM 10 MG TABLET. PO SCH (08:18)
[2018-11-27] MEDS: SPIRONOLACTONE 25 MG TABLET PO SCH (08:18)
[2018-11-27] MEDS: SERTRALINE 50 MG TABLET. PO SCH (08:18)
[2018-11-27] MEDS: PANTOPRAZOLE 40 MG TABLET. PO SCH ×2 (08:18→19:52)
[2018-11-27] MEDS: hydroCHLOROthiazide 25 MG TABLET PO SCH (08:19)
[2018-11-27] MEDS: MEMANTINE 10 MG TABLET. PO SCH ×2 (08:19→19:53)
[2018-11-27] MEDS: POTASSIUM CHLORIDE 20 MEQ TABLET.ER. PO SCH ×2 (08:19→19:52)
[2018-11-27] MEDS: DOCUSATE SODIUM 100 MG CAPSULE PO SCH (08:19)
[2018-11-27] MEDS: POLYETHYLENE GLYCOL 3350 17 GM PACKET. PO SCH (08:20)
[2018-11-27] MEDS: CIPROFLOXACIN HCL 250 MG TABLET PO SCH ×2 (08:20→19:53)
[2018-11-27] MEDS: DONEPEZIL HCL 10 MG TABLET PO SCH (08:20)
[2018-11-27] MEDS: FLUTICASONE 50MCG/NASAL SPRAY 16GM BOTTLE. NS SCH (08:21)
--- NOTE | 2018-11-27 11:18 | NUR ---
SW left msg. for Davina, social welfare administrator at [facility], to discuss postponement of pt. discharge previously scheduled for 11/29/2018 and rescheduled for 12/02/2018. TRESA spoke to pt. son, Juan Pablo Coleman, to discuss postponement of pt. discharge due to pt. behaviors. SW shared pt. is often refusing her medications and becomes irritable at times. SW shared nursing attempts to give pt. her medications hidden in food and drinks. TRESA also reports pt. will sit calming through some social work groups although she doesn't really participate. TRESA will touch shila Almeida after treatment team tomorrow to discuss plans for discharge.
--- NOTE | 2018-11-27 15:54 | NUR ---
Nursing Note: Pt calm, cooperative w/ cares, compliant w/ medications crushed hidden in boost. Pt very quiet, no aggressive behavior so far this shift.
[2018-11-27 16:15] VITALS: BP 119/75
[2018-11-27] MEDS: MIRTAZAPINE 7.5 MG TABLET. PO SCH (19:52)
[2018-11-27] MEDS: TAMSULOSIN 0.4 MG CAP.ER.24H. PO SCH (19:53)
--- NOTE | 2018-11-27 19:57 | PN ---
DATE: 11/26/2018 PSYCHIATRIC PROGRESS NOTE This late entry 11/26/2018 covers elements not covered in my initial note. SUBJECTIVE: I met with the patient in the evening. The patient slept 6 hours previous night. She refused her medications and was given her meds mixed in Boost and she took it because she was told a high protein content would help heal her skin wounds. She has been drowsy at times, complains of feeling cold. Valproic acid level subtherapeutic at 23, but clinically she seems to be doing well enough on Depakote 250 b.i.d. REVIEW OF SYSTEMS: No CV, , pulmonary, eye, ENT system symptoms on review. Reliability poor. MENTAL STATUS EXAM: Oriented to herself, at times situation. Speech has some latency, coherent, often responses monosyllabic. Abstraction fair, computation impaired, language function intact, attention span short. Mood and affect somewhat withdrawn. LABORATORY DATA: Reviewed. IMPRESSION: Major neurocognitive disorder, Alzheimer, vascular with delusion, depression, behavioral disturbance; anxiety disorder, unspecified; impulse control disorder, unspecified. PLAN: Continue psychotropics from initial note, may need to adjust Depakote if behavioral dyscontrol resurfaces. MORIS CHAVEZ MD DR: KRISTOPHER/samantha JOB#: [id number] / [id number]
--- NOTE | 2018-11-27 22:19 | PDOC ---
Exam Note: Yandel Note: Please also refer to the separate dictated note~for this date of service dictated separately.~Patient seen individually. Discussed the patient with Nursing staff reviewed the chart.~Reviewed interim history and current functioning. Reviewed vital signs,~Labs/ Radiology~and current medications noted below. Continue current treatment with the changes noted in the dictated addendum note Assessment: Vital Signs: Vital Signs Date Time Temp Pulse Resp B/P (MAP) Pulse Ox O2 Delivery O2 Flow Rate FiO2 11/27/18 16:15 97.8 94 18 119/75 (90) 97 11/26/18 16:21 Room Air I&O Intake and Output 11/27/18 06:59 Intake Total 1200 ml Balance 1200 ml Intake Oral 1200 ml Current Medications: Meds: Current Medications Potassium Chloride (Klor-Con) 40 meq 1X ONCE PO Last administered on 21:41; Start 11/18/18 at 20:30; Stop 11/18/18 at 20:31; Status DC Multi-Ingredient Ointment (Analgesic [place]) 1 isrrael PRN QID PRN TP MUSCLE PAIN; Start 11/18/18 at 21:30 Al Hydroxide/Mg Hydroxide (Mylanta Plus Xs) 15 ml PRN AFTMEALHC PRN PO DYSPEPSIA; Start 11/18/18 at 21:30 Magnesium Hydroxide (Milk Of Magnesia) 2,400 mg PRN QHS PRN PO CONSTIPATION; Start 11/18/18 at 21:30 Divalproex Sodium (Depakote Sprinkles) 250 mg BID PO Last administered on at 19:53; Start 11/18/18 at 22:15 Donepezil HCl (Aricept) 10 mg DAILY PO Last administered on 11/27/18at 08:20; Start 11/19/18 at 09:00 Memantine (Namenda) 10 mg BID PO Last administered on 11/27/18 19:53; Start at 09:00 Sertraline HCl (Zoloft) 25 mg DAILY PO Last administered on 11/21/18at 07:59; Start 11/19/18 at 09:00; Stop 11/21/18 at 13:14; Status DC Venlafaxine HCl (Effexor) 50 mg TID PO Last administered on 11/19/18 15:24; Start 11/19/18 at 09:00; Stop 11/19/18 at 19:17; Status DC Acetaminophen (Tylenol) 650 mg PRN Q4HRS PRN PO PAIN / TEMP; Start 11/18/18 at 21:45 Hydrochlorothiazide (Hydrodiuril) 25 mg DAILY PO Last administered on 11/27/18 08:19; Start 11/19/18 at 09:00 Tamsulosin HCl (Flomax) 0.4 mg HS PO Last administered on 11/27/18 19:53; Start 11/18/18 at 22:15 Atorvastatin Calcium (Lipitor) 10 mg DAILY PO Last administered on 11/27/18 08: 18; Start 11/19/18 at 09:00 Docusate Sodium (Colace) 100 mg DAILY PO Last administered on 11/27/18 08:19; Start 11/19/18 at 09:00 Fluticasone Propionate (Flonase) 2 spray DAILY NS Last administered on 08:21; Start 11/19/18 at 09:00 Loperamide HCl (Imodium) 2 mg PRN Q6HRS PRN PO DIARRHEA; Start 11/18/18 at 22: 15 Non-Formulary Medication (Omeprazole ) 20 mg DAILY PO ; Start 11/19/18 at 09:00 ; Status UNV Ondansetron HCl (Zofran Odt) 4 mg PRN Q6HRS PRN PO NAUSEA/VOMITING; Start 11/18 at 22:15 Pantoprazole Sodium (Protonix) 40 mg BID PO Last administered on 11/27/18 19:52 ; Start 11/18/18 at 22:15 Polyethylene Glycol (miraLAX) 17 gm DAILY PO Last administered on 11/27/18 08: 20; Start 11/19/18 at 09:00 Polyethylene Glycol (miraLAX) 17 gm PRN Q12HR PRN PO CONSTIPATION; Start at 22:15 Potassium Chloride (Klor-Con) 20 meq BID PO Last administered on 11/27/18 19:52 ; Start 11/18/18 at 22:15 Spironolactone (Aldactone) 25 mg DAILY PO Last administered on 11/27/18 08:18; Start 11/19/18 at 09:00 Sertraline HCl (Zoloft) 50 mg DAILY PO Last administered on 11/27/18 08:18; Start 11/22/18 at 09:00 Ciprofloxacin (Cipro) 250 mg BID PO Last administered on 11/27/18 19:53; Start 11/22/18 at 21:00 Lactobacillus Rhamnosus (Culturelle) 1 cap BID PO Last administered on 19:52; Start 11/22/18 at 21:00 Mirtazapine (Remeron) 7.5 mg QHS PO Last administered on 11/27/18 19:52; Start 11/23/18 at 21:15 Sertraline HCl (Zoloft) 75 mg DAILY PO Last administered on 11/27/18 08:18; Start 11/26/18 at 09:00; Stop 12/01/18 at 12:00 Sertraline HCl (Zoloft) 100 mg DAILY PO ; Start 12/02/18 at 09:00 Active Scripts Active Reported Ondansetron Hcl 4 Mg Tablet 4 Mg PO PRN Q6HRS PRN Zoloft (Sertraline Hcl) 25 Mg Tablet 25 Mg PO DAILY Pantoprazole Sodium 40 Mg Tablet.dr 40 Mg PO BID Potassium Chloride 20 Meq Tablet.er 20 Meq PO BID Miralax (Polyethylene Glycol 3350) 17 Gm Powd.pack 17 Gm PO PRN Q12HR PRN Miralax (Polyethylene Glycol 3350) 17 Gm Powd.pack 17 Gm PO DAILY Omeprazole 20 Mg Tablet.dr 20 Mg PO DAILY Namenda Xr (Memantine Hcl) 28 Mg Cap.spr.24 28 Mg PO DAILY Loperamide (Loperamide Hcl) 2 Mg Tablet 2 Mg PO PRN Q6HRS PRN Hydrochlorothiazide Tablet (Hydrochlorothiazide) 25 Mg Tablet 25 Mg PO DAILY Fluticasone Propionate Nasal [place] (Fluticasone Propionate) 16 Gm [place].susp 2 [place] NS DAILY Tamsulosin Hcl 0.4 Mg Cap.er.24h 0.4 Mg PO HS Venlafaxine Hcl Er (Venlafaxine Hcl) 150 Mg Cap.er.24h 150 Mg PO DAILY Donepezil Hcl 10 Mg Tablet 10 Mg PO DAILY Depakote Sprinkle (Divalproex Sodium) 125 Mg Cap.sprink 250 Mg PO BID Colace (Docusate Sodium) 100 Mg Capsule 100 Mg PO DAILY Atorvastatin Calcium 10 Mg Tablet 10 Mg PO DAILY Lorazepam 2 Mg/1 Ml Vial 0.5 Ml IM PRN Q6HRS PRN Aldactone (Spironolactone) 25 Mg Tablet 25 Mg PO DAILY Acetaminophen 325 Mg Tablet 650 Mg PO PRN Q4HRS PRN I have reviewed the current psychotropics carefully including drug interactions. Risk benefit ratio favors no change other than as noted in my dictated progress note. Diagnosis: Problems: (1) Dementia with behavioral disturbance (2) Anxiety disorder (3) Dementia in Alzheimer's disease with delusions (4) Dementia in Alzheimer's disease with depression (5) Dementia, vascular, with delusions (6) Dementia, vascular, with depression (7) Impulse control disorder MORIS CHAVEZ MD Nov 27, 2018 22:19
--- NOTE | 2018-11-28 00:20 | NUR ---
Pt sitting calmly in dayroom all evening. Compliant with medications crushed in chocolate boost. No agitation or aggression this evening.
[2018-11-28 06:05] VITALS: BP 97/60
[2018-11-28] MEDS: ATORVASTATIN CALCIUM 10 MG TABLET. PO SCH (07:43)
[2018-11-28] MEDS: SPIRONOLACTONE 25 MG TABLET PO SCH (07:43)
[2018-11-28] MEDS: POLYETHYLENE GLYCOL 3350 17 GM PACKET. PO SCH (07:43)
[2018-11-28] MEDS: LACTOBACILLUS RHAMNOSUS GG 1 CAPSULE. PO SCH ×2 (07:44→19:57)
[2018-11-28] MEDS: SERTRALINE 50 MG TABLET. PO SCH (07:44)
[2018-11-28] MEDS: PANTOPRAZOLE 40 MG TABLET. PO SCH ×2 (07:44→19:56)
[2018-11-28] MEDS: hydroCHLOROthiazide 25 MG TABLET PO SCH (07:45)
[2018-11-28] MEDS: CIPROFLOXACIN HCL 250 MG TABLET PO SCH ×2 (07:45→19:56)
[2018-11-28] MEDS: DOCUSATE SODIUM 100 MG CAPSULE PO SCH (07:45)
[2018-11-28] MEDS: SERTRALINE 25 MG TABLET. PO SCH (07:45)
[2018-11-28] MEDS: DONEPEZIL HCL 10 MG TABLET PO SCH (07:45)
[2018-11-28] MEDS: POTASSIUM CHLORIDE 20 MEQ TABLET.ER. PO SCH ×2 (07:45→19:56)
[2018-11-28] MEDS: MEMANTINE 10 MG TABLET. PO SCH ×2 (07:46→19:56)
[2018-11-28] MEDS: DIVALPROEX 125 MG CAP.SPRINK PO SCH ×2 (07:46→19:57)
[2018-11-28] MEDS: FLUTICASONE 50MCG/NASAL SPRAY 16GM BOTTLE. NS SCH (09:00)
--- NOTE | 2018-11-28 09:23 | NUR ---
WEEKLY ACTIVITY THERAPY NOTE Date of Admission: 11/18/2018 Date of AT Assessment: 11/20/2018 Goal aimed: to increase leisure knowledge and engagement Initial goal: Pt. will participate in three Activity Therapy groups or 1:1 sessions per week. Weekly progress towards goal: achieved Group participation level: minimal Behaviors observed: stays around group but less interest in activities this week. Often declines invitations. Covered face with blanket on Sunday Plan: no change to goal
--- NOTE | 2018-11-28 10:04 | NUR ---
WEEKLY NOTES: Pt is medication compliant and taking meds crushed in her Boost. Pt is not displaying any behaviors here. Pt is pretty withdrawn from group activities but does sit in the day room. Pt son is concerned about pt not maintaining taking her medications once discharged back to her facility. Pt has a skin tear on her hand and believes that her medications are helping to heal it. ELOS for the beginning of next week.
--- NOTE | 2018-11-28 15:22 | NUR ---
TRESA spoke to Davina, social science research assistant at [facility], to discuss pt. progress and pt. discharge scheduled for 12/02/2018. TRESA will wait for Davina to call on 11/29/2018 with transport time. TRESA talked to pt. son, Juan Pablo Coleman, regarding pt. progress and discharge plan. SW share pt. has not been displaying behaviors and although not participating in groups, is often sitting in the day room.
--- NOTE | 2018-11-28 15:36 | NUR ---
Pt has been calm, cooperative, appropriate, and quiet throughout shift. During shift assessment, pt stated that she was confused about where she was and why she was here. This nurse explained where she was and her behaviors at [facility] that got her here, and pt replied with "yeah, that sounds like me." Pt was cooperative with her assessment and sits quietly in the day room, not participating in group sessions. Pt is willing to drink boost drink under the impression that it is extra protein to help heal her skin tears on her forearms.
--- NOTE | 2018-11-28 15:42 | NUR ---
Behavior Intervention Response and Plan: BIRP Note: Behavior: Assumed Care of patient, patient located in Day Room at shift change. Patient exhibited the following behavior Calm, Cooperative, Drowsy. Brief assessment on rounds of vital signs, medication needs, lab studies, and pain. Treatment plan problems: alteration in thought process and fall risk. Intervention: Patient assessed and the following interventions initiated safety checks 15 Minute Checks Cognitive Assessment , Head to toe Assessment , Medications. Response: After interactions and interventions patient responded in the following manner, Calm , Withdrawn ,Cooperative. Continue to assess behaviors and condition will continue to monitor throughout the shift as needed. Patient educated on ADL's, and hand hygiene. 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 Continue to assess patient for changes in above assessment. Monitor for medication needs, pain, and safety concerns. Hourly rounding performed to ensure safe environment.
[2018-11-28 16:25] VITALS: BP 106/70
[2018-11-28] MEDS: TAMSULOSIN 0.4 MG CAP.ER.24H. PO SCH (19:56)
[2018-11-28] MEDS: MIRTAZAPINE 7.5 MG TABLET. PO SCH (19:57)
--- NOTE | 2018-11-28 22:13 | PDOC ---
Exam Note: Yandel Note: Please also refer to the separate dictated note~for this date of service dictated separately.~Patient seen individually. Discussed the patient with Nursing staff reviewed the chart.~Reviewed interim history and current functioning. Reviewed vital signs,~Labs/ Radiology~and current medications noted below. Continue current treatment with the changes noted in the dictated addendum note Assessment: Vital Signs: Vital Signs Date Time Temp Pulse Resp B/P (MAP) Pulse Ox O2 Delivery O2 Flow Rate FiO2 11/28/18 16:25 97.7 93 18 106/70 (82) 97 Room Air I&O Intake and Output 11/28/18 06:59 Intake Total 1080 ml Balance 1080 ml Intake Oral 1080 ml # Voids 1 # Bowel Movements 2 Current Medications: Meds: Current Medications Potassium Chloride (Klor-Con) 40 meq 1X ONCE PO Last administered on at 21:41; Start 11/18/18 at 20:30; Stop 11/18/18 at 20:31; Status DC Multi-Ingredient Ointment (Analgesic [place]) 1 isrrael PRN QID PRN TP MUSCLE PAIN; Start 11/18/18 at 21:30 Al Hydroxide/Mg Hydroxide (Mylanta Plus Xs) 15 ml PRN AFTMEALHC PRN PO DYSPEPSIA; Start 11/18/18 at 21:30 Magnesium Hydroxide (Milk Of Magnesia) 2,400 mg PRN QHS PRN PO CONSTIPATION; Start 11/18/18 at 21:30 Divalproex Sodium (Depakote Sprinkles) 250 mg BID PO Last administered on at 19:57; Start 11/18/18 at 22:15 Donepezil HCl (Aricept) 10 mg DAILY PO Last administered on 11/28/18at 07:45; Start 11/19/18 at 09:00 Memantine (Namenda) 10 mg BID PO Last administered on 11/28/18 19:56; Start at 09:00 Sertraline HCl (Zoloft) 25 mg DAILY PO Last administered on 11/21/18at 07:59; Start 11/19/18 at 09:00; Stop 11/21/18 at 13:14; Status DC Venlafaxine HCl (Effexor) 50 mg TID PO Last administered on 11/19/18at 15:24; Start 11/19/18 at 09:00; Stop 11/19/18 at 19:17; Status DC Acetaminophen (Tylenol) 650 mg PRN Q4HRS PRN PO PAIN / TEMP; Start 11/18/18 at 21:45 Hydrochlorothiazide (Hydrodiuril) 25 mg DAILY PO Last administered on 11/28/18 07:45; Start 11/19/18 at 09:00 Tamsulosin HCl (Flomax) 0.4 mg HS PO Last administered on 11/28/18 19:56; Start 11/18/18 at 22:15 Atorvastatin Calcium (Lipitor) 10 mg DAILY PO Last administered on 11/28/18 07: 43; Start 11/19/18 at 09:00 Docusate Sodium (Colace) 100 mg DAILY PO Last administered on 11/28/18 07:45; Start 11/19/18 at 09:00 Fluticasone Propionate (Flonase) 2 spray DAILY NS Last administered on 08:21; Start 11/19/18 at 09:00 Loperamide HCl (Imodium) 2 mg PRN Q6HRS PRN PO DIARRHEA; Start 11/18/18 at 22: 15 Non-Formulary Medication (Omeprazole ) 20 mg DAILY PO ; Start 11/19/18 at 09:00 ; Status UNV Ondansetron HCl (Zofran Odt) 4 mg PRN Q6HRS PRN PO NAUSEA/VOMITING; Start 11/18 at 22:15 Pantoprazole Sodium (Protonix) 40 mg BID PO Last administered on 11/28/18 19:56 ; Start 11/18/18 at 22:15 Polyethylene Glycol (miraLAX) 17 gm DAILY PO Last administered on 11/28/18 07: 43; Start 11/19/18 at 09:00 Polyethylene Glycol (miraLAX) 17 gm PRN Q12HR PRN PO CONSTIPATION; Start at 22:15 Potassium Chloride (Klor-Con) 20 meq BID PO Last administered on 11/28/18 19:56 ; Start 11/18/18 at 22:15 Spironolactone (Aldactone) 25 mg DAILY PO Last administered on 11/28/18 07:43; Start 11/19/18 at 09:00 Sertraline HCl (Zoloft) 50 mg DAILY PO Last administered on 11/28/18 07:44; Start 11/22/18 at 09:00 Ciprofloxacin (Cipro) 250 mg BID PO Last administered on 11/28/18 19:56; Start 11/22/18 at 21:00 Lactobacillus Rhamnosus (Culturelle) 1 cap BID PO Last administered on 19:57; Start 11/22/18 at 21:00 Mirtazapine (Remeron) 7.5 mg QHS PO Last administered on 11/28/18 19:57; Start 11/23/18 at 21:15 Sertraline HCl (Zoloft) 75 mg DAILY PO Last administered on 11/28/18 07:45; Start 11/26/18 at 09:00; Stop 12/01/18 at 12:00 Sertraline HCl (Zoloft) 100 mg DAILY PO ; Start 12/02/18 at 09:00 Active Scripts Active Reported Ondansetron Hcl 4 Mg Tablet 4 Mg PO PRN Q6HRS PRN Zoloft (Sertraline Hcl) 25 Mg Tablet 25 Mg PO DAILY Pantoprazole Sodium 40 Mg Tablet.dr 40 Mg PO BID Potassium Chloride 20 Meq Tablet.er 20 Meq PO BID Miralax (Polyethylene Glycol 3350) 17 Gm Powd.pack 17 Gm PO PRN Q12HR PRN Miralax (Polyethylene Glycol 3350) 17 Gm Powd.pack 17 Gm PO DAILY Omeprazole 20 Mg Tablet.dr 20 Mg PO DAILY Namenda Xr (Memantine Hcl) 28 Mg Cap.spr.24 28 Mg PO DAILY Loperamide (Loperamide Hcl) 2 Mg Tablet 2 Mg PO PRN Q6HRS PRN Hydrochlorothiazide Tablet (Hydrochlorothiazide) 25 Mg Tablet 25 Mg PO DAILY Fluticasone Propionate Nasal [place] (Fluticasone Propionate) 16 Gm [place].susp 2 [place] NS DAILY Tamsulosin Hcl 0.4 Mg Cap.er.24h 0.4 Mg PO HS Venlafaxine Hcl Er (Venlafaxine Hcl) 150 Mg Cap.er.24h 150 Mg PO DAILY Donepezil Hcl 10 Mg Tablet 10 Mg PO DAILY Depakote Sprinkle (Divalproex Sodium) 125 Mg Cap.sprink 250 Mg PO BID Colace (Docusate Sodium) 100 Mg Capsule 100 Mg PO DAILY Atorvastatin Calcium 10 Mg Tablet 10 Mg PO DAILY Lorazepam 2 Mg/1 Ml Vial 0.5 Ml IM PRN Q6HRS PRN Aldactone (Spironolactone) 25 Mg Tablet 25 Mg PO DAILY Acetaminophen 325 Mg Tablet 650 Mg PO PRN Q4HRS PRN I have reviewed the current psychotropics carefully including drug interactions. Risk benefit ratio favors no change other than as noted in my dictated progress note. Diagnosis: Problems: (1) Dementia with behavioral disturbance (2) Anxiety disorder (3) Dementia in Alzheimer's disease with delusions (4) Dementia in Alzheimer's disease with depression (5) Dementia, vascular, with delusions (6) Dementia, vascular, with depression (7) Impulse control disorder MORIS CHAVEZ MD Nov 28, 2018 22:13
--- NOTE | 2018-11-29 00:16 | NUR ---
Pt located in dayroom this evening. Pt calm and withdrawn. Medications crushed and hidden in hot chocolate. Medications were consumed without difficulty.
[2018-11-29 06:43] VITALS: BP 95/60
[2018-11-29] MEDS: POLYETHYLENE GLYCOL 3350 17 GM PACKET. PO SCH (07:48)
[2018-11-29] MEDS: ATORVASTATIN CALCIUM 10 MG TABLET. PO SCH (07:49)
[2018-11-29] MEDS: hydroCHLOROthiazide 25 MG TABLET PO SCH (07:49)
[2018-11-29] MEDS: SERTRALINE 50 MG TABLET. PO SCH (07:49)
[2018-11-29] MEDS: DONEPEZIL HCL 10 MG TABLET PO SCH (07:49)
[2018-11-29] MEDS: POTASSIUM CHLORIDE 20 MEQ TABLET.ER. PO SCH ×2 (07:49→20:01)
[2018-11-29] MEDS: DOCUSATE SODIUM 100 MG CAPSULE PO SCH (07:49)
[2018-11-29] MEDS: DIVALPROEX 125 MG CAP.SPRINK PO SCH ×2 (07:49→20:02)
[2018-11-29] MEDS: CIPROFLOXACIN HCL 250 MG TABLET PO SCH ×2 (07:50→20:02)
[2018-11-29] MEDS: SERTRALINE 25 MG TABLET. PO SCH (07:50)
[2018-11-29] MEDS: PANTOPRAZOLE 40 MG TABLET. PO SCH ×2 (07:50→20:04)
[2018-11-29] MEDS: SPIRONOLACTONE 25 MG TABLET PO SCH (07:50)
[2018-11-29] MEDS: FLUTICASONE 50MCG/NASAL SPRAY 16GM BOTTLE. NS SCH (07:51)
[2018-11-29] MEDS: MEMANTINE 10 MG TABLET. PO SCH ×2 (07:51→20:01)
[2018-11-29] MEDS: LACTOBACILLUS RHAMNOSUS GG 1 CAPSULE. PO SCH ×2 (08:00→20:01)
--- NOTE | 2018-11-29 12:56 | NUR ---
TRESA spoke to Davina, medical social worker at [facility], to get a last picker time for pt. discharge scheduled for 12/02/2018. Daivna shared that transportation has not given her a time, but she will leave this information on TRESA voicemail when a pickup time and contact has been determined.
[2018-11-29 15:30] VITALS: BP 103/58
--- NOTE | 2018-11-29 17:02 | NUR ---
Patient resistive with meds but is compliant if crushed and put in a small cup with chocolate boost. Nurse told her it was a "protein drink" with vitamins for health and healing. Patient spends day sleeping in her room. Comes out for meals.
--- NOTE | 2018-11-29 20:00 | NUR ---
Behavior Intervention Response and Plan: BIRP Note: Behavior: Assumed Care of patient, patient located in Day Room at shift change. Patient exhibited the following behavior Calm, Disorganized, Calm. Brief assessment on rounds of vital signs, medication needs, lab studies, and pain. Treatment plan problems 1. Intervention: Patient assessed and the following interventions initiated safety checks 15 Minute Checks Cognitive Assessment , Head to toe Assessment , Call godinez in reach. Response: After interactions and interventions patient responded in the following manner, Calm , Disorganized ,Irritable. Continue to assess behaviors and condition will continue to monitor throughout the shift as needed. Patient educated on ADL's, and hand hygiene. Plan: Continue to monitor Master Treatment Plan for patient's progress toward short term goals of Decreased Agitation, Medication Compliance, fpc goals to return to previous living setting vs placement. Continue to assess patient for changes in above assessment. Monitor for medication needs, pain, and safety concerns. Hourly rounding performed to ensure safe environment.
[2018-11-29] MEDS: TAMSULOSIN 0.4 MG CAP.ER.24H. PO SCH (20:01)
[2018-11-29] MEDS: MIRTAZAPINE 7.5 MG TABLET. PO SCH (20:02)
--- NOTE | 2018-11-29 20:33 | PN ---
DATE: 11/27/2018 PSYCHIATRIC PROGRESS NOTE This late entry 11/27/2018 covers elements not covered in my initial note. SUBJECTIVE: I met with the patient in the evening. The patient slept 7-1/4 hours previous night. The patient remains somewhat withdrawn. The nursing staff had to hide her meds and had to be given crushed in Boost. She spent some time in the day room, still depressed. REVIEW OF SYSTEMS: No CV, , pulmonary, eye system symptoms on review. MENTAL STATUS EXAM: Oriented to herself. Insight, judgment, recent and remote memory, attention, concentration, fund of knowledge poor, consistent with her diagnosis mentioned in my initial note. PLAN: No change from initial note. Increase Zoloft from 75 to 100 mg a day. Rest unchanged. MAN Michelle CHAVEZ MD DR: KRISTOPHER/samantha JOB#: [id number] / [id number]
--- NOTE | 2018-11-29 20:38 | PN ---
DATE: 11/28/2018 PSYCHIATRIC PROGRESS NOTE This late entry 11/28/2018 covers elements not covered in my initial note. SUBJECTIVE: I met with the patient in the evening. The patient was also staffed at a treatment team meeting earlier in the day, slept 5-3/4 hours previous night, 6-1/2 hours average. Appetite 65%. Reviewed her diagnosis, progress, medications at length at treatment team meeting. She has been quiet. When questioned, she always responds "I am not doing good." When further questioned, she is unable to be specific about this. She does take her meds in Boost . This is to help her skin tear. She is confused. No aggression. REVIEW OF SYSTEMS: No CV, , pulmonary, eye system symptoms on review. MENTAL STATUS EXAM: Oriented to herself. Insight, judgment, recent and remote memory, attention, concentration, fund of knowledge poor, consistent with her diagnosis mentioned in my initial note. PLAN: No change from initial note. MORIS CHAVEZ MD DR: KRISTOPHER/samantha JOB#: [id number] / [id number]
--- NOTE | 2018-11-29 21:00 | NUR ---
Pt was tired and wanted to go to bed; however, pt got agitated when she did not recognize her room. Pt was yelling, "I don't want to go to bed here. I want to go home! This is bull shit!" Pt then walked down the vela and went to bed.
--- NOTE | 2018-11-29 22:32 | PDOC ---
Exam Note: Yandel Note: Please also refer to the separate dictated note~for this date of service dictated separately.~Patient seen individually. Discussed the patient with Nursing staff reviewed the chart.~Reviewed interim history and current functioning. Reviewed vital signs,~Labs/ Radiology~and current medications noted below. Continue current treatment with the changes noted in the dictated addendum note Assessment: Vital Signs: Vital Signs Date Time Temp Pulse Resp B/P (MAP) Pulse Ox O2 Delivery O2 Flow Rate FiO2 11/29/18 15:30 97.2 66 20 103/58 (73) 96 Room Air I&O Intake and Output 11/29/18 06:59 Intake Total 960 ml Balance 960 ml Intake Oral 960 ml Current Medications: Meds: Current Medications Potassium Chloride (Klor-Con) 40 meq 1X ONCE PO Last administered on at 21:41; Start 11/18/18 at 20:30; Stop 11/18/18 at 20:31; Status DC Multi-Ingredient Ointment (Analgesic [place]) 1 isrrael PRN QID PRN TP MUSCLE PAIN; Start 11/18/18 at 21:30 Al Hydroxide/Mg Hydroxide (Mylanta Plus Xs) 15 ml PRN AFTMEALHC PRN PO DYSPEPSIA; Start 11/18/18 at 21:30 Magnesium Hydroxide (Milk Of Magnesia) 2,400 mg PRN QHS PRN PO CONSTIPATION; Start 11/18/18 at 21:30 Divalproex Sodium (Depakote Sprinkles) 250 mg BID PO Last administered on at 20:02; Start 11/18/18 at 22:15 Donepezil HCl (Aricept) 10 mg DAILY PO Last administered on 11/29/18at 07:49; Start 11/19/18 at 09:00 Memantine (Namenda) 10 mg BID PO Last administered on 11/29/18at 20:01; Start at 09:00 Sertraline HCl (Zoloft) 25 mg DAILY PO Last administered on 11/21/18at 07:59; Start 11/19/18 at 09:00; Stop 11/21/18 at 13:14; Status DC Venlafaxine HCl (Effexor) 50 mg TID PO Last administered on 11/19/18at 15:24; Start 11/19/18 at 09:00; Stop 11/19/18 at 19:17; Status DC Acetaminophen (Tylenol) 650 mg PRN Q4HRS PRN PO PAIN / TEMP; Start 11/18/18 at 21:45 Hydrochlorothiazide (Hydrodiuril) 25 mg DAILY PO Last administered on 11/29/18 07:49; Start 11/19/18 at 09:00 Tamsulosin HCl (Flomax) 0.4 mg HS PO Last administered on 11/29/18 20:01; Start 11/18/18 at 22:15 Atorvastatin Calcium (Lipitor) 10 mg DAILY PO Last administered on 11/29/18 07: 49; Start 11/19/18 at 09:00 Docusate Sodium (Colace) 100 mg DAILY PO Last administered on 11/29/18 07:49; Start 11/19/18 at 09:00 Fluticasone Propionate (Flonase) 2 spray DAILY NS Last administered on 07:51; Start 11/19/18 at 09:00 Loperamide HCl (Imodium) 2 mg PRN Q6HRS PRN PO DIARRHEA; Start 11/18/18 at 22: 15 Non-Formulary Medication (Omeprazole ) 20 mg DAILY PO ; Start 11/19/18 at 09:00 ; Status UNV Ondansetron HCl (Zofran Odt) 4 mg PRN Q6HRS PRN PO NAUSEA/VOMITING; Start 11/18 at 22:15 Pantoprazole Sodium (Protonix) 40 mg BID PO Last administered on 11/29/18 20:04 ; Start 11/18/18 at 22:15 Polyethylene Glycol (miraLAX) 17 gm DAILY PO Last administered on 11/29/18 07: 48; Start 11/19/18 at 09:00 Polyethylene Glycol (miraLAX) 17 gm PRN Q12HR PRN PO CONSTIPATION; Start at 22:15 Potassium Chloride (Klor-Con) 20 meq BID PO Last administered on 11/29/18 20:01 ; Start 11/18/18 at 22:15 Spironolactone (Aldactone) 25 mg DAILY PO Last administered on 11/29/18 07:50; Start 11/19/18 at 09:00 Sertraline HCl (Zoloft) 50 mg DAILY PO Last administered on 11/29/18 07:49; Start 11/22/18 at 09:00 Ciprofloxacin (Cipro) 250 mg BID PO Last administered on 11/29/18at 20:02; Start 11/22/18 at 21:00 Lactobacillus Rhamnosus (Culturelle) 1 cap BID PO Last administered on 20:01; Start 11/22/18 at 21:00 Mirtazapine (Remeron) 7.5 mg QHS PO Last administered on 11/29/18at 20:02; Start 11/23/18 at 21:15 Sertraline HCl (Zoloft) 75 mg DAILY PO Last administered on 11/29/18 07:50; Start 11/26/18 at 09:00; Stop 12/01/18 at 12:00 Sertraline HCl (Zoloft) 100 mg DAILY PO ; Start 12/02/18 at 09:00 Active Scripts Active Reported Ondansetron Hcl 4 Mg Tablet 4 Mg PO PRN Q6HRS PRN Zoloft (Sertraline Hcl) 25 Mg Tablet 25 Mg PO DAILY Pantoprazole Sodium 40 Mg Tablet.dr 40 Mg PO BID Potassium Chloride 20 Meq Tablet.er 20 Meq PO BID Miralax (Polyethylene Glycol 3350) 17 Gm Powd.pack 17 Gm PO PRN Q12HR PRN Miralax (Polyethylene Glycol 3350) 17 Gm Powd.pack 17 Gm PO DAILY Omeprazole 20 Mg Tablet.dr 20 Mg PO DAILY Namenda Xr (Memantine Hcl) 28 Mg Cap.spr.24 28 Mg PO DAILY Loperamide (Loperamide Hcl) 2 Mg Tablet 2 Mg PO PRN Q6HRS PRN Hydrochlorothiazide Tablet (Hydrochlorothiazide) 25 Mg Tablet 25 Mg PO DAILY Fluticasone Propionate Nasal Hanna (Fluticasone Propionate) 16 Gm Hanna.susp 2 Hanna NS DAILY Tamsulosin Hcl 0.4 Mg Cap.er.24h 0.4 Mg PO HS Venlafaxine Hcl Er (Venlafaxine Hcl) 150 Mg Cap.er.24h 150 Mg PO DAILY Donepezil Hcl 10 Mg Tablet 10 Mg PO DAILY Depakote Sprinkle (Divalproex Sodium) 125 Mg Cap.sprink 250 Mg PO BID Colace (Docusate Sodium) 100 Mg Capsule 100 Mg PO DAILY Atorvastatin Calcium 10 Mg Tablet 10 Mg PO DAILY Lorazepam 2 Mg/1 Ml Vial 0.5 Ml IM PRN Q6HRS PRN Aldactone (Spironolactone) 25 Mg Tablet 25 Mg PO DAILY Acetaminophen 325 Mg Tablet 650 Mg PO PRN Q4HRS PRN I have reviewed the current psychotropics carefully including drug interactions. Risk benefit ratio favors no change other than as noted in my dictated progress note. Diagnosis: Problems: (1) Dementia with behavioral disturbance (2) Anxiety disorder (3) Dementia in Alzheimer's disease with delusions (4) Dementia in Alzheimer's disease with depression (5) Dementia, vascular, with delusions (6) Dementia, vascular, with depression (7) Impulse control disorder MORIS CHAVEZ MD Nov 29, 2018 22:32
[2018-11-30 05:46] VITALS: BP 102/61
[2018-11-30] MEDS: DIVALPROEX 125 MG CAP.SPRINK PO SCH ×2 (07:54→20:07)
[2018-11-30] MEDS: ATORVASTATIN CALCIUM 10 MG TABLET. PO SCH (07:54)
[2018-11-30] MEDS: hydroCHLOROthiazide 25 MG TABLET PO SCH (07:54)
[2018-11-30] MEDS: POTASSIUM CHLORIDE 20 MEQ TABLET.ER. PO SCH ×2 (07:55→20:07)
[2018-11-30] MEDS: SPIRONOLACTONE 25 MG TABLET PO SCH (07:55)
[2018-11-30] MEDS: PANTOPRAZOLE 40 MG TABLET. PO SCH ×2 (07:55→20:07)
[2018-11-30] MEDS: DOCUSATE SODIUM 100 MG CAPSULE PO SCH (07:55)
[2018-11-30] MEDS: DONEPEZIL HCL 10 MG TABLET PO SCH (07:55)
[2018-11-30] MEDS: SERTRALINE 50 MG TABLET. PO SCH (07:56)
[2018-11-30] MEDS: CIPROFLOXACIN HCL 250 MG TABLET PO SCH ×2 (07:56→20:07)
[2018-11-30] MEDS: LACTOBACILLUS RHAMNOSUS GG 1 CAPSULE. PO SCH ×2 (07:56→20:07)
[2018-11-30] MEDS: POLYETHYLENE GLYCOL 3350 17 GM PACKET. PO SCH (07:56)
[2018-11-30] MEDS: MEMANTINE 10 MG TABLET. PO SCH ×2 (07:56→20:07)
[2018-11-30] MEDS: SERTRALINE 25 MG TABLET. PO SCH (07:56)
[2018-11-30] MEDS: FLUTICASONE 50MCG/NASAL SPRAY 16GM BOTTLE. NS SCH (07:57)
--- NOTE | 2018-11-30 11:20 | NUR ---
Nursing Note: Pt calm, very quiet, compliant w/ medications hidden in boost. Pt withdrawn, slept after breakfast. When asked orientation questions by Dr. Moncada pt responded, "I don't know where I am. I don't know the date." When asked if she were happy pt smiled and replied, "I am happy."
[2018-11-30 15:30] VITALS: BP 133/82
--- NOTE | 2018-11-30 20:00 | NUR ---
Behavior Intervention Response and Plan: BIRP Note: Behavior: Assumed Care of patient, patient located in Patient Room at shift change. Patient exhibited the following behavior Interactive, Calm, Disorganized. Brief assessment on rounds of vital signs, medication needs, lab studies, and pain. Treatment plan problems 1. Intervention: Patient assessed and the following interventions initiated safety checks 15 Minute Checks Cognitive Assessment , Head to toe Assessment , Medications. Response: After interactions and interventions patient responded in the following manner, Interactive , Calm ,Disorganized. Continue to assess behaviors and condition will continue to monitor throughout the shift as needed. Patient educated on ADL's, and hand hygiene. Plan: Continue to monitor Master Treatment Plan for patient's progress toward short term goals of Decreased Agitation, Decreased Anxiety, intermodal customer service goals to return to previous living setting vs placement. Continue to assess patient for changes in above assessment. Monitor for medication needs, pain, and safety concerns. Hourly rounding performed to ensure safe environment.
[2018-11-30] MEDS: TAMSULOSIN 0.4 MG CAP.ER.24H. PO SCH (20:07)
[2018-11-30] MEDS: MIRTAZAPINE 7.5 MG TABLET. PO SCH (20:07)
--- NOTE | 2018-11-30 23:14 | PN ---
DATE: 11/30/2018 SUBJECTIVE: The patient was seen today, met with the staff, chart reviewed. The patient continues to exhibit behavioral problems, hyperverbal, impulse control issues, withdrawn significant memory problems. She is also disoriented to surroundings. OBSERVATION: VITAL SIGNS: Temperature 98.9, blood pressure 102/61, pulse 71, respirations 16, O2 sat 98%. GENERAL: Slept about 6 hours last night. The patient currently not presenting with any major medical issues. MEDICATIONS: Include Zoloft 100 mg daily and 75 mg daily, mirtazapine 7.5 mg at night, also Zoloft 50 mg daily, Namenda 10 mg b.i.d., Aricept 10 mg b.i.d., Depakote 250 mg b.i.d. The patient is not having any side effects to the medications. LABORATORY DATA: The patient's lab reviewed. The patient's liver enzymes slightly elevated, AST 42. ASSESSMENT: Major neurocognitive disorder, Alzheimer's versus vascular; impulse control disorder, unspecified. PLAN: To continue with the treatment. VENU KIRKPATRICK MD DR: HARLAN/samantha JOB#: [id number] / [id number]
[2018-12-01 06:13] VITALS: BP 91/50
[2018-12-01] MEDS: DOCUSATE SODIUM 100 MG CAPSULE PO SCH (08:18)
[2018-12-01] MEDS: SPIRONOLACTONE 25 MG TABLET PO SCH (08:18)
[2018-12-01] MEDS: DIVALPROEX 125 MG CAP.SPRINK PO SCH ×2 (08:18→20:06)
[2018-12-01] MEDS: SERTRALINE 50 MG TABLET. PO SCH (08:19)
[2018-12-01] MEDS: PANTOPRAZOLE 40 MG TABLET. PO SCH ×2 (08:19→20:06)
[2018-12-01] MEDS: DONEPEZIL HCL 10 MG TABLET PO SCH (08:19)
[2018-12-01] MEDS: ATORVASTATIN CALCIUM 10 MG TABLET. PO SCH (08:19)
[2018-12-01] MEDS: LACTOBACILLUS RHAMNOSUS GG 1 CAPSULE. PO SCH ×2 (08:19→20:06)
[2018-12-01] MEDS: MEMANTINE 10 MG TABLET. PO SCH ×2 (08:19→20:06)
[2018-12-01] MEDS: CIPROFLOXACIN HCL 250 MG TABLET PO SCH ×2 (08:19→20:07)
[2018-12-01] MEDS: POTASSIUM CHLORIDE 20 MEQ TABLET.ER. PO SCH ×2 (08:19→20:07)
[2018-12-01] MEDS: SERTRALINE 25 MG TABLET. PO SCH (08:20)
[2018-12-01] MEDS: hydroCHLOROthiazide 25 MG TABLET PO SCH (08:20)
[2018-12-01] MEDS: POLYETHYLENE GLYCOL 3350 17 GM PACKET. PO SCH (08:20)
[2018-12-01] MEDS: FLUTICASONE 50MCG/NASAL SPRAY 16GM BOTTLE. NS SCH (08:21)
--- NOTE | 2018-12-01 11:33 | NUR ---
Nursing Note: Pt near the dining room door during breakfast and appeared confused. Approached pt and asked if I could help, pt was confused and could not find her room. Lead pt to her room and also showed her the day room and reminded her that she could visit with other residents and watch television or attend group.
[2018-12-01 16:21] VITALS: BP 95/61
[2018-12-01] MEDS: MIRTAZAPINE 7.5 MG TABLET. PO SCH (20:06)
[2018-12-01] MEDS: TAMSULOSIN 0.4 MG CAP.ER.24H. PO SCH (20:07)
--- NOTE | 2018-12-01 20:31 | DS ---
DATE OF DISCHARGE: DISCHARGE DIAGNOSES: AXIS: 1. Major neurocognitive disorder, Alzheimer's, vascular with delusions, depression, and behavioral disturbances. 2. Anxiety disorder, unspecified. 3. Impulse control disorder, unspecified. AXIS II: None. AXIS III: Hypertension, hyperlipidemia, diverticulitis of both small and large intestine, history of falls, history of GI bleed. REASON FOR ADMISSION: This 82-year-old female was admitted from [facility] at the recommendation of the primary care physician and the Psychiatrist because of increased confusion, agitation and marked emotional lability constantly screaming, kicking, threatening to kill others, getting extremely paranoid and suspicious and also paranoid towards the staff and was difficult to manage her at this facility. HISTORY OF PRESENT ILLNESS: The patient has a long history of dementia diagnosed with Alzheimer's and vascular type. The patient is increasingly getting paranoid, increased agitation, inability to sleep and also appetite changes. The patient is also disruptive to other residents, physically threatening others. HOSPITAL COURSE: The patient had a physical exam, routine lab work including CBC, chem profile and urinalysis. The patient's lab work were within normal range except for sodium level of 147, chloride 109, BUN 21, BUN and creatinine ratio 23, slight elevation of AST 42, that was decreased to 14. The patient's Depakote level was 23. The patient's urine drug screen was negative for drugs. The patient was involved in the program including individual therapy, group therapy and activity therapy. The patient was continued on her medications including Zoloft 100 mg daily, Remeron 7.5 mg at night. The patient was also on Cipro 250 mg b.i.d. for UTI. The patient's Zoloft was increased to 150 mg daily. The patient was also on spironolactone 25 mg daily. She is also on Flonase spray daily, Lipitor 10 mg daily, Colace 100 mg daily, hydrochlorothiazide 25 mg daily, Namenda 10 mg b.i.d., Aricept 10 mg daily, potassium chloride 20 mEq b.i.d., Flomax 0.4 mg at night, Depakote 250 mg b.i.d. The patient did fairly well. The patient did not have any major side effects. No falls. The patient is accepting of the discharge plan and the [facility] is willing to take her back. AFTERCARE PLAN: The patient will be discharged to [facility] and the patient will continue on the medications listed above. VENU KIRKPATRICK MD DR: HARLAN/samantha JOB#: [id number] / [id number]
--- NOTE | 2018-12-02 00:48 | NUR ---
Patient in bed with romario wrapped around her most of the evening. She took medication crushed and hidden in small cup of boost. She says she doesn't take medications when asked. Patient stated that she is 89 years old. Patient scheduled to discharge tomorrow.
[2018-12-02] MEDS ORDERED: MIRT15TA3 PO (02:09)
[2018-12-02] MEDS ORDERED: LACT1CAP19 PO (02:12)
[2018-12-02] MEDS ORDERED: MAGN2400 PO (02:13)
[2018-12-02] MEDS ORDERED: MAG355OR17 PO (02:15)
[2018-12-02] MEDS ORDERED: METH113C10 TP (02:17)
--- NOTE | 2018-12-02 03:13 | PN ---
DATE: 11/29/2018 PSYCHIATRIC PROGRESS NOTE This late entry 11/29/2018 covers elements not covered in my initial note. SUBJECTIVE: I met with the patient in the evening. The patient slept 7 hours previous night. She remains confused, somewhat withdrawn, spending much time in bed. Resistive to medications, takes her medications crushed in Boost if she is told this is to help her skin wounds and skin tear pulmonary, eye, ENT system symptoms on review. MENTAL STATUS EXAM: Oriented to herself and situation. Speech moderate latency, often responses monosyllabic. Abstraction fair, computation impaired, language function intact, attention span short. Mood and affect somewhat withdrawn. LABORATORY DATA: Reviewed. IMPRESSION: Unchanged from initial note. PLAN: No change from initial note. MORIS CHAVEZ MD DR: KRISTOPHER/samantha JOB#: [id number] / [id number]
[2018-12-02 06:07] VITALS: BP 90/65
[2018-12-02] MEDS: POTASSIUM CHLORIDE 20 MEQ TABLET.ER. PO SCH (08:48)
[2018-12-02] MEDS: LACTOBACILLUS RHAMNOSUS GG 1 CAPSULE. PO SCH (08:48)
[2018-12-02] MEDS: DONEPEZIL HCL 10 MG TABLET PO SCH (08:48)
[2018-12-02] MEDS: ATORVASTATIN CALCIUM 10 MG TABLET. PO SCH (08:48)
[2018-12-02] MEDS: SPIRONOLACTONE 25 MG TABLET PO SCH (08:48)
[2018-12-02] MEDS: PANTOPRAZOLE 40 MG TABLET. PO SCH (08:48)
[2018-12-02] MEDS: DIVALPROEX 125 MG CAP.SPRINK PO SCH (08:48)
[2018-12-02] MEDS: CIPROFLOXACIN HCL 250 MG TABLET PO SCH (08:48)
[2018-12-02] MEDS: MEMANTINE 10 MG TABLET. PO SCH (08:48)
[2018-12-02] MEDS: SERTRALINE 50 MG TABLET. PO SCH (08:48)
[2018-12-02] MEDS: POLYETHYLENE GLYCOL 3350 17 GM PACKET. PO SCH (08:49)
[2018-12-02] MEDS: FLUTICASONE 50MCG/NASAL SPRAY 16GM BOTTLE. NS SCH (08:49)
[2018-12-02] MEDS: DOCUSATE SODIUM 100 MG CAPSULE PO SCH (08:49)
[2018-12-02] MEDS: hydroCHLOROthiazide 25 MG TABLET PO SCH (08:49)
[2018-12-02] MEDS ORDERED: SERTRALINE 100 MG TABLET. PO SCH (09:00)
--- NOTE | 2018-12-02 10:48 | NUR ---
[facility] Social Work Discharge Planning Form Patient Name JOSSY CONNELLY Admit Date: 11/18/2018 DISCHARGE PLAN Discharge Destination: [facility] Assessment: NA Level II Assessment: NA Transportation: [facility] to pick pt. up at 1:00 pm on 12/02/2018. Special Instructions/Notes: Please fax discharge paperwork and medication list to [phone]. DISCHARGE TO FACILITY Facility: [facility] Address: [address] [place] [address] Contact Name: Jessica Nursing PCP: Dr. Mary Psychiatrist: None
[2018-12-02] MEDS ORDERED: SERT100T PO (12:12)
[2018-12-02] MEDS ORDERED: MEMA10TA PO (12:15)
--- NOTE | 2018-12-02 13:11 | NUR ---
Nursing Note: Pt calm, confused, compliant w/ medications crushed and hidden in toro boost. Pt sometimes asked where the group of people are that she came with, but she is easily redirected.
--- NOTE | 2018-12-02 14:40 | NUR ---
Transition Record was faxed to follow-up provider with the following elements: Reason for admission, procedures, tests, principal diagnosis, pending studies, patient instructions, 16/04 contact information for unit, phone number to obtain pending test results, plan for follow-up care, physician follow-up, advanced directive information, and medication list with dose, duration and instructions. This information was included in the following documents: History and physical, lab results, study results, progress notes, social work planning form, DC instruction form, patient visit summary, and medication reconciliation form. Date & time record faxed:[phone] Record faxed to: Zafar Smith [place] Record discussed with/ report given to:Venus ZHU Addendum: 12/06/18 at 1814 by FRANCK BROUSSARD RN Pt discharge 12/02/18
== END 2018-12-02 14:40 | DRG 56 ==
LOC: ER 18:52 → GEROPSY 20:43
PROVIDERS: ADMIT Psychiatry & Neurology Psychiatry; ATTEND Psychiatry & Neurology Psychiatry
DX: G30.9 Alzheimer's disease, unspecified (principal); E43 Unspecified severe protein-calorie malnutrition; F01.51 Vascular dementia, unspecified severity, with behavioral disturbance; N39.0 Urinary tract infection, site not specified; F02.81 Dementia in other diseases classified elsewhere, unspecified severity, with behavioral disturbance; K57.52 Diverticulitis of both small and large intestine without perforation or abscess without bleeding; F41.9 Anxiety disorder, unspecified; Z66 Do not resuscitate; F63.9 Impulse disorder, unspecified; E87.6 Hypokalemia; D63.8 Anemia in other chronic diseases classified elsewhere; E78.2 Mixed hyperlipidemia; F32.9 Major depressive disorder, single episode, unspecified; G47.00 Insomnia, unspecified; G93.2 Benign intracranial hypertension; I10 Essential (primary) hypertension; T50.2X5A Adverse effect of carbonic-anhydrase inhibitors, benzothiadiazides and other diuretics, initial encounter; Z79.899 Other long term (current) drug therapy; Z91.81 History of falling; Z68.20 Body mass index [BMI] 20.0-20.9, adult
CPT/HCPCS: 36415; 80048; 80053; 80061; 80076; 80164; 80307; 81001; 82306; 83036; 83540; 83550; 83735; 84436; 84443; 84480; 85025; 86592; 87086; 87186; 93005; 99285; G0480